=== PATIENT | male | born 1955 | race Caucasian/White ===

== ENCOUNTER 2017-06-01 15:54 | Inpatient (IN) | payer MEDICARE ==
[~2017-06-01] VITALS: Ht 165.1 cm; Wt 57.8 kg
[~2017-06-01 15:54] MED LIST: AMBIEN10 MG PO; ATROVENT 0.02%2.5 ML UPD; BUMINATE50 ML IV; DAKIN'S 0.25%480 ML TOPICAL; FEOSOL LIQ300 MG/5 M PO; FERROUS SULFAT325 MG PO; FLAGYL500 MG PEG; FOLIC ACID1 MG PO; INSPIRATION ELI1 PK1 INH; KLONOPIN1 MG PO; LACTINEX GRANUL1 PCK PO; NASACORT AQ16.5 GM NASAL; NICODERM C1 PATCH .2 TRANSDERM; PERCOCET 10/3251 TA1 PO; PERCOCET 5-3251 TAB PO; PERFOROMIS20 MCG/21 INH; PERIDEX480 ML MM; PLAVIX75 MG PO; PREDNISONE20 MG PO; PREDNISONE5 MG PO; PROTONIX40 MG PEG; PROVENTIL/2.5 MG/3 M INH; PULMICORT0.25 MG/1 INH; REQUIP XL6 MG PO; REQUIP1 MG PO; RESTORIL15 MG PO; RIFADIN300 MG PEG; ROXICODONE15 MG PO; SOMA350 MG PO; ST JOSEPH ASPIR81 MG PO; VANCOMYCIN 1 GM/1 G1 IV; VENTOLIN HFA18 GM INH; VITAMIN B-150 MG PEG; XOPENEX 0.0.63 MG/3 UPD; ZANAFLEX4 MG PO; ZANTAC150 MG PO; [UNRECOGNIZED DRUG - OTHER] IV
[2017-06-01 16:44] VITALS: BP 144/105; BMI 19.1
[2017-06-01 17:06] LABS: BASOPHILS 0.1 % (0-2); EOSINOPHILS 0 % (0-7); HEMOGLOBIN 18.2 g/dL (13.5-17.5); IMMATURE GRANULOCYTES 0.3 % (0-5); LYMPHOCYTES 10.2 % (15-50); MCH 34.1 pg (26.0-34.0); MCHC 34.3 g/dL (31.0-37.0); MCV 99.4 fL (80.0-100.0); MONOCYTES 9.5 % (2-11); NEUTROPHILS 79.9 % (40-80); PLATELET COUNT 261 10x3/uL (130-400); RBC 5.33 10x6/uL (4.20-6.10); RDW 13.7 % (11.5-14.5); WBC 14.7 10x3/uL (4.8-10.8)
--- NOTE | 2017-06-01 17:29 | NUR ---
PT ADMITTED TO FLOOR. ASSESSMENT COMPLETE. NO ACUTE DISTRESS AT THIS TIME. BED IN LOWEST POSITION, SIDE RAILS UP X 2, CALL LIGHT WITHIN REACH. FAMILY AT BEDSIDE.
[2017-06-01 19:08] LABS: ALBUMIN 3.8 g/dL (3.4-5.0); ALKALINE PHOSPHATASE 111 U/L (46-116); ALT (SGPT) 13 U/L (10-68); AMYLASE - SERUM 75 U/L (25-115); BILIRUBIN - TOTAL 0.34 mg/dL (0.2-1.3); CALC OSMOLALITY 282 mosm/kg (275-300); CARBON DIOXIDE 26.1 mmol/L (21.0-32.0); CHLORIDE - SERUM 100 mmol/L (98-107); CREATINE KINASE 51 UL (21-232); CREATININE - SERUM 4.1 mg/dL (0.6-1.3); GLUCOSE 114 mg/dL (74-106); LIPASE 66 U/L (73-393); POTASSIUM - SERUM 3.7 mmol/L (3.5-5.1); PROTEIN - SERUM 7.8 g/dL (6.4-8.2); SODIUM 140 mmol/L (136-145); UREA NITROGEN 21 mg/dL (7-18); eGFR NON AFRICAN AMERICAN 16 mL/min (90-120)
[2017-06-01 19:09] LABS: TROPONIN-I < 0.017 ng/mL (0.000-0.060)
[2017-06-01 19:11] LABS: THYROID STIMULATING HORMONE 1.52 uIU/mL (0.36-3.74)
[2017-06-01 20:00] VITALS: BP 110/80
--- NOTE | 2017-06-01 23:03 | NUR ---
1944)REC'D. IN BED VISITOR AT BEDSIDE.DENIES NAUSEA AT PRESENT TIME.REQUESTING TO KEEP INHALER AT BEDSIDE INSTRUCTED WILL HAVE TO TALK WITH HOSPITAL POLICY DOES NOT ALLOW US TO LEAVE MEDS AT BEDSIDE VOICES UNDERSTANDING
[2017-06-02] VITALS (7 sets, daily range): BP systolic 108–136; BP diastolic 74–83; Ht 165.1 cm; Wt 57.8 kg
--- NOTE | 2017-06-02 04:19 | NUR ---
RN NOTE: PT RESTING QUILETY IN SUPINE POSITION WITH UNLABORED BREATHING. IV IN RIGHT FA PATENT WITH NS INFUSING AT 100 ML HR. SCD'S IN USE ON BLE. WILL CONTINUE TO MONITOR COLOSELY FOR NEEDS.
[2017-06-02 06:01] LABS: BASOPHILS 0.1 % (0-2); EOSINOPHILS 0.5 % (0-7); HEMOGLOBIN 15.6 g/dL (13.5-17.5); IMMATURE GRANULOCYTES 0.3 % (0-5); LYMPHOCYTES 18.8 % (15-50); MCH 34.4 pg (26.0-34.0); MCHC 34.7 g/dL (31.0-37.0); MCV 99.3 fL (80.0-100.0); MEAN PLATELET VOLUME 11.2 fL (7.4-10.4); MONOCYTES 9.6 % (2-11); NEUTROPHILS 70.7 % (40-80); PLATELET COUNT 215 10x3/uL (130-400); RBC 4.53 10x6/uL (4.20-6.10); RDW 13.5 % (11.5-14.5); WBC 11.6 10x3/uL (4.8-10.8)
[2017-06-02 06:13] LABS: ALBUMIN 3.2 g/dL (3.4-5.0); ANION GAP 14.3 mmol/L (8-16); BILIRUBIN - TOTAL 0.33 mg/dL (0.2-1.3); CALCIUM 8.2 mg/dL (8.5-10.1); CARBON DIOXIDE 25.6 mmol/L (21.0-32.0); CREATININE - SERUM 3.8 mg/dL (0.6-1.3); POTASSIUM - SERUM 3.9 mmol/L (3.5-5.1); PROTEIN - SERUM 6.9 g/dL (6.4-8.2)
--- NOTE | 2017-06-02 07:00 | NUR ---
REPORT RECIEVED ASSUMED CARE. PATIENT IN BED WITH IV INTACT. NO COMPLAINTS AT THIS TIME. CALL LIGHT WITHIN REACH.
--- NOTE | 2017-06-02 08:45 | NUR ---
ASSESSMENT COMPLETE, VS STABLE. NO COMPLAINTS AT THIS TIME. CALL LIGHT WITHIN REACH.
--- NOTE | 2017-06-02 14:30 | NUR ---
PATIENT IV RESTARTED IN RIGHT LOWER EXT. X 1 STICK PER PATIENT REQUEST. RIGHT AC IV LEFT IN PLACE. NO COMPLAINTS AT THIS TIME. FAMILY AT BEDSIDE. CALL LIGHT WITHIN REACH.
--- NOTE | 2017-06-02 16:35 | NUR ---
Patient Name: ERICH TOUSSAINT Admission Status: Urgent Accout number: [id number] Admission Date: 06-01-2017 : 1955 Admission Diagnosis:NAUSEA WITH VOMITING, UNSPECIFIED Attending: CLARK Current LOS: 1 Anticipated DC Date: 06-05-2017 Planned Disposition: Home Primary Insurance: MEDICARE A & B Discharge Planning Comments: CM MET WITH PATIENT REGARDING D/C NEEDS AND PLANS. PATIENT STATED HE LIVES WITH HIS FATHER IN LAW (DAVID) AND SISTER IN LAW (JEWELS) AND ONE OF THEM WILL DRIVE HIM HOME AT DISCHARGE. PATIENT STATED THERE ARE 3 STEPS TO ENTER HOME AND NO STAIRS ONCE INSIDE. PATIENT IS INDEPENDENT WITH HIS CARE AND HAS A WALKER, WHEELCHAIR, SHOWER CHAIR, BS COMMODE, AND OXYGEN PRN AT HOME. PATIENT DOES NOT KNOW WHO SUPPLIES O2. PATIENTS PCP IS DR. CEBALLOS AND PHARMACY IS [facility] IN [place]. PATIENT DOES NOT WANT HOME HEALTH. CM WILL CONTINUE TO FOLLOW PATIENT WITH D/C NEEDS AND PLANS. PCP DR. CEBALLOS [facility] [phone] JEWELS (SISTER IN LAW) [phone] Sample Preparation Supervisor: Luz Do Is the patient Alert and Oriented? Yes 0 * How many steps to enter\exit or inside your home? 3 0 * PCP DR. CEBALLOS 0 * Pharmacy [facility] 0 * Preadmission Environment Home with Family 0 * ADLs Independent 0 * Equipment Bedside Commode Oxygen Shower Chair Walker Wheelchair 0 * List name and contact numbers for known caregivers / representatives who currently or will assist patient after discharge: JEWELS CALVILLO (SISTER IN LAW) [phone] 0 * Community resources currently utilized None 0 * Additional services required to return to the preadmission environment? Yes 0 * Can the patient safely return to the preadmission environment? Yes 0 * Has this patient been hospitalized within the prior 30 days at any hospital? No 0 Grand Total: 0
[2017-06-02 16:39] LABS: APPEARANCE CLEAR (CLEAR); BILIRUBIN NEGATIVE (NEGATIVE); COLOR YELLOW (YELLOW); GLUCOSE NEGATIVE (NEGATIVE); KETONE NEGATIVE (NEGATIVE); LEUKOCYTE ESTERASE TRACE (NEGATIVE); NITRITE POSITIVE (NEGATIVE); PROTEIN TRACE mg/dL (NEGATIVE); SPECIFIC GRAVITY 1.025 (1.005-1.020); UROBILINOGEN NORMAL (NORMAL)
[2017-06-02 16:40] LABS: BACTERIA FEW /hpf (NONE SEEN); RED CELLS - URINE OCC /hpf (0-5); WHITE CELLS - URINE 0-5 /hpf (0-5)
--- NOTE | 2017-06-02 19:30 | NUR ---
NGT INSERTED AT THIS TIME. PATIENT TOLERATED WITH SMALL AMOUNT OF PAIN. AUSCULTATED PLACEMENT OF TUBE X 2 RNS AT THIS TIME. CONNECTED TO LIWS ORDERED. CALL LIGHT WITHIN REACH.
[2017-06-03 03:58] VITALS: BP 125/71
--- NOTE | 2017-06-03 07:00 | NUR ---
PT REC'D FROM [facility]. RESTING IN BED WATCHING TV. AAOX4. RATING CURRENT PAIN IN ABD 07/25. NGT TO R NARE PULLING DARK COFFEE GROUND FLUID TO COLLECTION CANISTER TO LIS. PIV TO R FOREARM AND R AC FREE OF REDNESS AND SWELLING. IVF INFUSING TO R FOREARM. REGULAR HEART RATE AND RHTYHM. BILAT WHEEZES NOTED TO LOWER LOBES. BOWEL SOUNDS HYPOACTIVE X4 QUADS. +2 PEDAL PULSES BILAT. BED LOW, CALL LIGHT IN REACH, DENIES NEEDS. CPOC.
[2017-06-03 07:59] LABS: BASOPHILS 0.2 % (0-2); EOSINOPHILS 0.9 % (0-7); IMMATURE GRANULOCYTES 0.2 % (0-5); LYMPHOCYTES 12.8 % (15-50); MCH 33.5 pg (26.0-34.0); MCHC 34.4 g/dL (31.0-37.0); MCV 97.5 fL (80.0-100.0); MEAN PLATELET VOLUME 11.2 fL (7.4-10.4); MONOCYTES 10.2 % (2-11); NEUTROPHILS 75.7 % (40-80); PLATELET COUNT 186 10x3/uL (130-400); RDW 13.5 % (11.5-14.5)
[2017-06-03 08:05] LABS: HEMATOCRIT 35.2 % (42.0-54.0); HEMOGLOBIN 12.1 g/dL (13.5-17.5); RBC 3.61 10x6/uL (4.20-6.10); WBC 6.5 10x3/uL (4.8-10.8)
[2017-06-03 08:27] LABS: ALBUMIN 2.6 g/dL (3.4-5.0); BILIRUBIN - TOTAL 0.4 mg/dL (0.2-1.3); CALCIUM 7.5 mg/dL (8.5-10.1); CARBON DIOXIDE 25.5 mmol/L (21.0-32.0); PROTEIN - SERUM 5.3 g/dL (6.4-8.2)
[2017-06-03 08:37] LABS: CREATININE - SERUM 1.2 mg/dL (0.6-1.3)
[2017-06-03 08:39] LABS: POTASSIUM - SERUM 2.5 mmol/L (3.5-5.1)
[2017-06-03 09:02] VITALS: BP 149/76
[2017-06-03 12:44] VITALS: BP 138/75
--- NOTE | 2017-06-03 13:14 | NUR ---
ATTEMPTED TO FLUSH PIV TO R AC. IV SITE BEGAN TO INFLITRATE. PIV RESITED TO R FA WITH 20GUAGE IV CATHETER FOR K REPLACEMENT. X1 ATTEMPT. FAMILY AT BEDSIDE. RECONNECTED TO IVF. BED LOW, CALL LIGHT IN REACH, DENIES NEEDS. CPOC.
[2017-06-03 15:36] VITALS: BP 139/80
[2017-06-03 19:00] VITALS: BP 111/72
[2017-06-04] VITALS: BP 118/72
[2017-06-04 04:00] VITALS: BP 138/82
[2017-06-04 04:53] LABS: BASOPHILS 0.1 % (0-2); EOSINOPHILS 2.5 % (0-7); HEMATOCRIT 36.4 % (42.0-54.0); HEMOGLOBIN 12.4 g/dL (13.5-17.5); IMMATURE GRANULOCYTES 0.3 % (0-5); LYMPHOCYTES 14.9 % (15-50); MCH 34.1 pg (26.0-34.0); MCHC 34.1 g/dL (31.0-37.0); MEAN PLATELET VOLUME 10.7 fL (7.4-10.4); NEUTROPHILS 71.2 % (40-80); PLATELET COUNT 177 10x3/uL (130-400); RBC 3.64 10x6/uL (4.20-6.10); RDW 13.5 % (11.5-14.5); WBC 6.9 10x3/uL (4.8-10.8)
[2017-06-04 05:23] LABS: INR 1.2 (0.85-1.17); PROTIME 15.1 SECONDS (11.6-15.0)
[2017-06-04 05:30] LABS: APPEARANCE CLEAR (CLEAR); BILIRUBIN NEGATIVE (NEGATIVE); COLOR YELLOW (YELLOW); GLUCOSE 250 mg/dL (NEGATIVE); KETONE NEGATIVE (NEGATIVE); LEUKOCYTE ESTERASE NEGATIVE (NEGATIVE); NITRITE NEGATIVE (NEGATIVE); PROTEIN NEGATIVE (NEGATIVE); UROBILINOGEN NORMAL (NORMAL)
[2017-06-04 05:31] LABS: ALBUMIN 2.7 g/dL (3.4-5.0); ALKALINE PHOSPHATASE 67 U/L (46-116); ALT (SGPT) 9 U/L (10-68); BILIRUBIN - TOTAL 0.62 mg/dL (0.2-1.3); CALCIUM 7.9 mg/dL (8.5-10.1); CARBON DIOXIDE 28.7 mmol/L (21.0-32.0); CHLORIDE - SERUM 110 mmol/L (98-107); CREATININE - SERUM 0.9 mg/dL (0.6-1.3); GLUCOSE 95 mg/dL (74-106); MAGNESIUM - SERUM 2.1 mg/dL (1.8-2.4); PROTEIN - SERUM 5.9 g/dL (6.4-8.2); SODIUM 144 mmol/L (136-145); eGFR NON AFRICAN AMERICAN 90 mL/min (90-120)
[2017-06-04 05:32] LABS: CALC OSMOLALITY 285 mosm/kg (275-300); POTASSIUM - SERUM 3.5 mmol/L (3.5-5.1); UREA NITROGEN 9 mg/dL (7-18)
--- NOTE | 2017-06-04 07:55 | NUR ---
PATIENT LOW SMITH POSITION. RESPIRATIONS EVEN AND UNLABORED. SIDE RAILS UP X2. BED IN LOW POSITION. CALL LIGHT IN REACH. NO NEEDS VOICED.
[2017-06-04 09:41] VITALS: BP 170/77
[2017-06-04 12:33] VITALS: BP 149/94
[2017-06-04 17:38] VITALS: BP 159/91
[2017-06-04 20:00] VITALS: BP 151/83
--- NOTE | 2017-06-04 22:00 | NUR ---
PT ALERT & ORIENTED. NG TUBE CLAMPED. BOWEL SOUNDS HYPERACTIVE X4 NOW. PT TOLERATING CLEAR LIQUIDS. COMPLETE ASSESSMENT PER FLOW-SHEET. WILL CONTINUE TO MONITOR.
[2017-06-05] VITALS: BP 136/81
[2017-06-05 04:00] VITALS: BP 152/82
[2017-06-05 06:47] LABS: BASOPHILS 0.3 % (0-2); HEMATOCRIT 34.4 % (42.0-54.0); HEMOGLOBIN 11.7 g/dL (13.5-17.5); IMMATURE GRANULOCYTES 0.1 % (0-5); LYMPHOCYTES 17.2 % (15-50); MCH 34.1 pg (26.0-34.0); MCV 100.3 fL (80.0-100.0); MEAN PLATELET VOLUME 11.4 fL (7.4-10.4); MONOCYTES 9.8 % (2-11); NEUTROPHILS 68.6 % (40-80); PLATELET COUNT 179 10x3/uL (130-400); RBC 3.43 10x6/uL (4.20-6.10); RDW 13.7 % (11.5-14.5); WBC 7.8 10x3/uL (4.8-10.8)
[2017-06-05 07:00] LABS: ALBUMIN 2.4 g/dL (3.4-5.0); ALKALINE PHOSPHATASE 57 U/L (46-116); ALT (SGPT) 8 U/L (10-68); BILIRUBIN - TOTAL 0.41 mg/dL (0.2-1.3); CALC OSMOLALITY 275 mosm/kg (275-300); CALCIUM 7.6 mg/dL (8.5-10.1); CARBON DIOXIDE 26.6 mmol/L (21.0-32.0); CHLORIDE - SERUM 107 mmol/L (98-107); CREATININE - SERUM 0.8 mg/dL (0.6-1.3); GLUCOSE 104 mg/dL (74-106); POTASSIUM - SERUM 3.3 mmol/L (3.5-5.1); PROTEIN - SERUM 5.4 g/dL (6.4-8.2); SODIUM 140 mmol/L (136-145); eGFR NON AFRICAN AMERICAN > 90 mL/min (90-120)
[2017-06-05 07:01] LABS: UREA NITROGEN 4 mg/dL (7-18)
--- NOTE | 2017-06-05 07:45 | NUR ---
PT ASSESSMENT COMPLETE SEE FLOW SHEET NO ACUTE DISTRESS NOTED VOICES ALL NEEDS TO STAFF ALL ADLS PER STAFF ASSIST. NGT CLAMPED AT THIS TIME. WILL TREAT PAIN PER ORDER.
[2017-06-05 09:32] VITALS: BP 136/73
[2017-06-05 11:58] VITALS: BP 143/72
[2017-06-05 17:16] VITALS: BP 145/76
[2017-06-05 19:00] VITALS: BP 154/45
--- NOTE | 2017-06-05 21:07 | NUR ---
2000)DR. OSMAN HERE NG TUBE DC'D ORDERED.INSTRUCTED ON FULL LIQUID DIET VOICES UNDERSTANDING
[2017-06-06] VITALS: BP 122/82
--- NOTE | 2017-06-06 02:00 | NUR ---
PT RESTING IN BED WITH NO DISTRESS. RESPIRATIONS ARE EVEN AND UNLABORED. SIDE RAILS UP X 2. BED IS LOW. CALL LIGHT IN REACH.
--- NOTE | 2017-06-06 02:00 | NUR ---
PT RESTING IN BED WITH NO DISTRESS. RESPIRATIONS EVEN AND UNLABORED. VISITOR AT THE BEDSIDE. SIDE RAILS UP X 2. BED IS LOW. CALL LIGHT IN REACH.
[2017-06-06 04:00] VITALS: BP 133/92
[2017-06-06 06:47] LABS: BASOPHILS 0.1 % (0-2); EOSINOPHILS 3.9 % (0-7); HEMATOCRIT 36.2 % (42.0-54.0); HEMOGLOBIN 12.4 g/dL (13.5-17.5); IMMATURE GRANULOCYTES 0.1 % (0-5); LYMPHOCYTES 20.1 % (15-50); MCH 33.8 pg (26.0-34.0); MCHC 34.3 g/dL (31.0-37.0); MCV 98.6 fL (80.0-100.0); MEAN PLATELET VOLUME 10.9 fL (7.4-10.4); NEUTROPHILS 66.8 % (40-80); PLATELET COUNT 185 10x3/uL (130-400); RBC 3.67 10x6/uL (4.20-6.10); RDW 13.5 % (11.5-14.5); WBC 7.1 10x3/uL (4.8-10.8)
[2017-06-06 07:11] LABS: ALBUMIN 2.5 g/dL (3.4-5.0); ALKALINE PHOSPHATASE 55 U/L (46-116); ALT (SGPT) 9 U/L (10-68); AMYLASE - SERUM 49 U/L (25-115); BILIRUBIN - TOTAL 0.35 mg/dL (0.2-1.3); CALC OSMOLALITY 273 mosm/kg (275-300); CALCIUM 7.9 mg/dL (8.5-10.1); CARBON DIOXIDE 24.6 mmol/L (21.0-32.0); CHLORIDE - SERUM 106 mmol/L (98-107); CREATININE - SERUM 0.7 mg/dL (0.6-1.3); GLUCOSE 101 mg/dL (74-106); LIPASE 68 U/L (73-393); POTASSIUM - SERUM 3.4 mmol/L (3.5-5.1); PROTEIN - SERUM 5.6 g/dL (6.4-8.2); SODIUM 139 mmol/L (136-145); THYROID STIMULATING HORMONE 1.15 uIU/mL (0.36-3.74); UREA NITROGEN 1 mg/dL (7-18); eGFR NON AFRICAN AMERICAN > 90 mL/min (90-120)
--- NOTE | 2017-06-06 07:55 | NUR ---
PT AOX4 RESP EVEN AND NONLABORED PT DENIES NEEDS AT THIS TIME IV TO LEFT FOREARM PATENT AND INTACT AT THIS TIME SRX2 BED AT LOWEST SETTING CALL LIGHT WITHIN REACH WILL CONTINUE TO MONITOR
[2017-06-06 09:03] VITALS: BP 159/86
[2017-06-06 12:05] VITALS: BP 127/88
--- NOTE | 2017-06-06 15:08 | NUR ---
NUTRITION MONITORING & EVAL CHART REVIEWED, PT VISIT. TOLERATING FULL LIQUID DIET. ADDED ENSURE TO MEALS. RD FOLLOWING
[2017-06-06 17:44] VITALS: BP 144/80
[2017-06-06 23:59] VITALS: BP 158/89
--- NOTE | 2017-06-07 01:44 | NUR ---
2030) PT. REQUESTING MORPHINE INFORMED MS HAS BEEN DISCONTINUED.BECAME VERY ANGRY.STATES YOU'RE JUST HOLDING MY MEDS FROM ME THE WOULDN'T DO THAT.DISCUSSED WITH XIOMARA GARCIA WHO TALKED WITH PATIENT REGARDING MORPHINE BEING DISCONTINUED.NOW VOICES UNDERSTANDING.WILL CONTINUE TO MONITOR FOR ANY CHGES. AND FOLLOW CURRENT PLAN OF CARE
--- NOTE | 2017-06-07 01:56 | NUR ---
0130)PAIN MED OFFERED REFUSED STATES I DON'T NEED IT
--- NOTE | 2017-06-07 02:00 | NUR ---
PT IN BED WITH NO DISTRESS. RESPIRATIONS EVEN AND UNLABORED. SIDE RAILS X 2. BED IS LOW. CALL LIGHT IN REACH.
[2017-06-07 04:00] VITALS: BP 119/51
--- NOTE | 2017-06-07 07:58 | NUR ---
PT AOX4 RESP EVEN AND NONLABORED IV TO RIGHT HAND PATENT INTACT AT THIS TIME SRX2 BED AT LOWEST SETTING CALL LIGHT WITHIN REACH WILL CONTINUE TO MONITOR
[2017-06-07 09:33] VITALS: BP 132/94
[2017-06-07 11:29] LABS: BASOPHILS 0.5 % (0-2); EOSINOPHILS 2.2 % (0-7); HEMATOCRIT 37.4 % (42.0-54.0); HEMOGLOBIN 12.6 g/dL (13.5-17.5); IMMATURE GRANULOCYTES 0.2 % (0-5); LYMPHOCYTES 24.3 % (15-50); MCH 33.7 pg (26.0-34.0); MCHC 33.7 g/dL (31.0-37.0); MEAN PLATELET VOLUME 10.8 fL (7.4-10.4); MONOCYTES 8.4 % (2-11); NEUTROPHILS 64.4 % (40-80); RBC 3.74 10x6/uL (4.20-6.10); RDW 13.6 % (11.5-14.5); WBC 5.9 10x3/uL (4.8-10.8)
[2017-06-07 11:41] LABS: PLATELET COUNT 223 10x3/uL (130-400)
[2017-06-07 11:59] LABS: ALBUMIN 2.6 g/dL (3.4-5.0); ALKALINE PHOSPHATASE 54 U/L (46-116); ALT (SGPT) 8 U/L (10-68); BILIRUBIN - TOTAL 0.24 mg/dL (0.2-1.3); CALC OSMOLALITY 275 mosm/kg (275-300); CALCIUM 8.2 mg/dL (8.5-10.1); CARBON DIOXIDE 27.1 mmol/L (21.0-32.0); CHLORIDE - SERUM 106 mmol/L (98-107); CREATININE - SERUM 0.7 mg/dL (0.6-1.3); GLUCOSE 108 mg/dL (74-106); POTASSIUM - SERUM 3.8 mmol/L (3.5-5.1); PROTEIN - SERUM 5.6 g/dL (6.4-8.2); SODIUM 140 mmol/L (136-145); eGFR NON AFRICAN AMERICAN > 90 mL/min (90-120)
[2017-06-07 12:03] LABS: UREA NITROGEN 2 mg/dL (7-18)
[2017-06-07 13:40] VITALS: BP 143/103
[2017-06-07 17:15] VITALS: BP 130/71
[2017-06-07 19:00] VITALS: BP 152/75
--- NOTE | 2017-06-07 22:40 | NUR ---
2000)REC'D.IN BED EXPLAINED RUBIN PREP. VOICES UNDERSTANDING.NPO AT VT.PREP STARTED.MARYANNE SAGE CONTINUE TO MONITOR FOR ANY CHGES AND FOLLOW CURRENT PLAN OF CARE.
[2017-06-08 04:00] VITALS: BP 153/90
[2017-06-08 06:04] LABS: BASOPHILS 0.8 % (0-2); EOSINOPHILS 3.8 % (0-7); HEMATOCRIT 36.2 % (42.0-54.0); HEMOGLOBIN 12.1 g/dL (13.5-17.5); IMMATURE GRANULOCYTES 0.4 % (0-5); LYMPHOCYTES 39.5 % (15-50); MCH 33.2 pg (26.0-34.0); MCHC 33.4 g/dL (31.0-37.0); MCV 99.5 fL (80.0-100.0); MEAN PLATELET VOLUME 10.9 fL (7.4-10.4); MONOCYTES 10.4 % (2-11); NEUTROPHILS 45.1 % (40-80); PLATELET COUNT 228 10x3/uL (130-400); RBC 3.64 10x6/uL (4.20-6.10); RDW 13.7 % (11.5-14.5); WBC 5.3 10x3/uL (4.8-10.8)
[2017-06-08 06:39] LABS: ALBUMIN 2.6 g/dL (3.4-5.0); ALKALINE PHOSPHATASE 50 U/L (46-116); ALT (SGPT) 10 U/L (10-68); CALC OSMOLALITY 273 mosm/kg (275-300); CARBON DIOXIDE 27.4 mmol/L (21.0-32.0); CHLORIDE - SERUM 106 mmol/L (98-107); CREATININE - SERUM 0.7 mg/dL (0.6-1.3); GLUCOSE 84 mg/dL (74-106); POTASSIUM - SERUM 3.6 mmol/L (3.5-5.1); PROTEIN - SERUM 5.6 g/dL (6.4-8.2); SODIUM 140 mmol/L (136-145); UREA NITROGEN 2 mg/dL (7-18); eGFR NON AFRICAN AMERICAN > 90 mL/min (90-120)
--- NOTE | 2017-06-08 08:15 | NUR ---
PATIENT ALERT IN MID SMITH POSITION. RESPIRATIONS EVEN AND UNLABORED. SIDE RAILS UP X2. BED IN LOW POSITION. CALL LIGHT IN REACH.
[2017-06-08 09:49] VITALS: BP 152/86
--- NOTE | 2017-06-08 10:01 | NUR ---
RETURNED TO FLOOR FROM EGD AND COLONOSCOPY, DENIES NEEDS, BED LOWEST POSITION, CALL LIGHT IN REACH, WILL CONTINUE TO MONITOR
[2017-06-08 14:21] VITALS: BP 150/80
[2017-06-08 17:01] VITALS: BP 133/79
--- NOTE | 2017-06-08 19:00 | NUR ---
REPORT RECEIVED AND CARE OF PT ASSUMED. PT LYING IN SEMI SMITH'S POSITION WATCHING TV. IV IN RIGHT FA WITH NS AT KVO. TELEMETRY IN USE. WILL MONITOR FOR NEEDS.
[2017-06-08 20:00] VITALS: BP 131/77
--- NOTE | 2017-06-08 21:39 | NUR ---
HS MEDICATIONS GIVEN TO INCLUDE PERCOCET PER PRN ORDER. WILL CONTINUE TO MONITOR FOR NEEDS.
[2017-06-09] VITALS: BP 110/70
[2017-06-09 04:00] VITALS: BP 133/78
[2017-06-09 07:00] LABS: HEMATOCRIT 32.1 % (42.0-54.0); HEMOGLOBIN 11.2 g/dL (13.5-17.5); LYMPHOCYTES 29.4 % (15-50); MCH 34.6 pg (26.0-34.0); MCHC 34.9 g/dL (31.0-37.0); MCV 99.1 fL (80.0-100.0); MEAN PLATELET VOLUME 10.4 fL (7.4-10.4); NEUTROPHILS 57.5 % (40-80); PLATELET COUNT 209 10x3/uL (130-400); RBC 3.24 10x6/uL (4.20-6.10); RDW 13.8 % (11.5-14.5); WBC 6.4 10x3/uL (4.8-10.8)
[2017-06-09 07:16] LABS: ALBUMIN 2.2 g/dL (3.4-5.0); ALKALINE PHOSPHATASE 49 U/L (46-116); ALT (SGPT) 9 U/L (10-68); CALCIUM 7.8 mg/dL (8.5-10.1); CHLORIDE - SERUM 107 mmol/L (98-107); GLUCOSE 109 mg/dL (74-106); PROTEIN - SERUM 4.9 g/dL (6.4-8.2); SODIUM 140 mmol/L (136-145)
[2017-06-09 07:20] LABS: CALC OSMOLALITY 276 mosm/kg (275-300); CREATININE - SERUM 0.9 mg/dL (0.6-1.3); UREA NITROGEN 5 mg/dL (7-18); eGFR NON AFRICAN AMERICAN 90 mL/min (90-120)
--- NOTE | 2017-06-09 07:58 | NUR ---
PT AOX4 RESP EVEN AND NONLABORED PT DENIES NEEDS AT THIS TIME IV TO RIGHT FOREARM PATNE AND INTACT AT THIS TIME SRX2 BED AT LOWEST SETTING CALL LIGHT WITHIN REACH WILL CONTINUE TO MONITOR
[2017-06-09 08:32] VITALS: BP 125/72
[2017-06-09] MEDS ORDERED: ASPIRIN81 MG PO (12:57)
[2017-06-09] MEDS ORDERED: PROTONIX40 MG PO (12:59)
[2017-06-09] MEDS ORDERED: FLORAJEN3 CAPS460 MG PO (12:59)
[2017-06-09] MEDS ORDERED: FLAGYL500 MG PO (13:02)
[2017-06-09] MEDS ORDERED: LEVAQUIN500 MG PO (13:02)
--- NOTE | 2017-06-09 13:19 | NUR ---
CM REASSESSMENT NOTE: PATIENT IS DISCHARGING HOME TODAY WITH HOME HEALTH. SIGNED THE DOROTHY FORM FOR [facility] [facility]. FAMILY DRIVING HIM HOME.
[2017-06-09 14:13] VITALS: BP 91/65
--- NOTE | 2017-06-09 15:47 | NUR ---
IV'S X2 DISCONTINUED WITH CATHETERS INTACT AT THIS TIME DISCHARGE INSTRUCTIONS AND ONE PAPER PRESCRIPTION GIVEN TO PT AT THIS TIME PT TAKEN VIA WHEELCHAIR VIA PRIVATE VEHICLE AT THIS TIME
[2017-06-12 20:08] LABS: AEROBE ID Preliminary report (())
== END 2017-06-09 15:53 | disposition home health service (06) | DRG 389 ==
LOC: D.MS 15:54
PROVIDERS: Emergency Medicine; Family Medicine; Internal Medicine; Internal Medicine Gastroenterology; ADMIT Family Medicine
PROC: 0D9670Z Drainage of Stomach with Drainage Device, Via Natural or Artificial Opening (ICD-10-PCS; principal; 2017-06-03)
PROC: 0DB68ZX Excision of Stomach, Via Natural or Artificial Opening Endoscopic, Diagnostic (ICD-10-PCS; 2017-06-08)
PROC: 0DBK8ZZ Excision of Ascending Colon, Via Natural or Artificial Opening Endoscopic (ICD-10-PCS; 2017-06-08)
PROC: 0DBM8ZZ Excision of Descending Colon, Via Natural or Artificial Opening Endoscopic (ICD-10-PCS; 2017-06-08)
PROC: 0DBL8ZZ Excision of Transverse Colon, Via Natural or Artificial Opening Endoscopic (ICD-10-PCS; 2017-06-08)
DX: K56.7 Ileus, unspecified (principal); N17.9 Acute kidney failure, unspecified; D62 Acute posthemorrhagic anemia; L97.829 Non-pressure chronic ulcer of other part of left lower leg with unspecified severity; L97.819 Non-pressure chronic ulcer of other part of right lower leg with unspecified severity; I70.92 Chronic total occlusion of artery of the extremities; E46 Unspecified protein-calorie malnutrition; K22.10 Ulcer of esophagus without bleeding; E86.0 Dehydration; E87.6 Hypokalemia; I27.2 Other secondary pulmonary hypertension; J44.9 Chronic obstructive pulmonary disease, unspecified; I70.248 Atherosclerosis of native arteries of left leg with ulceration of other part of lower leg; I70.238 Atherosclerosis of native arteries of right leg with ulceration of other part of lower leg; K75.9 Inflammatory liver disease, unspecified; F17.200 Nicotine dependence, unspecified, uncomplicated; K29.70 Gastritis, unspecified, without bleeding; K29.80 Duodenitis without bleeding; D12.2 Benign neoplasm of ascending colon; D12.4 Benign neoplasm of descending colon; D12.3 Benign neoplasm of transverse colon

== ENCOUNTER 2019-04-28 11:38 | Inpatient (IN) | payer MEDICARE ==
[~2019-04-28] VITALS: Ht 165.1 cm; Wt 59.0 kg
[~2019-04-28 11:38] MED LIST changes: +ASPIRIN81 MG PO; +FLAGYL500 MG PO; +FLORAJEN3 CAPS460 MG PO; +LEVAQUIN500 MG PO; +PROTONIX40 MG PO
[2019-04-28 12:57] LABS: BASOPHILS 0.5 % (0-2); EOSINOPHILS 1.2 % (0-7); HEMATOCRIT 45.9 % (42.0-54.0); IMMATURE GRANULOCYTES 0.1 % (0-5); LYMPHOCYTES 25.8 % (15-50); MCHC 34.9 g/dL (31.0-37.0); MCV 91.8 fL (80.0-100.0); MEAN PLATELET VOLUME 10.1 fL (7.4-10.4); MONOCYTES 11.7 % (2-11); NEUTROPHILS 60.7 % (40-80); RDW 14.2 % (11.5-14.5); WBC 8.3 10x3/uL (4.8-10.8)
[2019-04-28 13:01] LABS: PLATELET COUNT 269 10x3/uL (130-400)
[2019-04-28 13:04] LABS: INR 0.93 (0.85-1.17)
[2019-04-28 13:07] LABS: D-DIMER-QUANTITATIVE 1.18 ug/mLFEU (0.20-0.54)
--- NOTE | 2019-04-28 13:15 | NUR ---
PT CLEANED WITH BATH WIPES. NEW PULL-UP PLACED. SHEETS CHANGED AND PADS PLACED UNDER THE PT.
[2019-04-28 15:00] VITALS: BP 141/87
[2019-04-28 15:13] LABS: APPEARANCE CLEAR (CLEAR); BILIRUBIN NEGATIVE (NEGATIVE); COLOR STRAW (YELLOW); GLUCOSE NEGATIVE (NEGATIVE); KETONE NEGATIVE (NEGATIVE); NITRITE NEGATIVE (NEGATIVE); PROTEIN NEGATIVE (NEGATIVE); UROBILINOGEN NORMAL (NORMAL)
[2019-04-28 15:22] LABS: ALBUMIN 2.8 g/dL (3.4-5.0); ALKALINE PHOSPHATASE 73 U/L (46-116); ALT (SGPT) 33 U/L (10-68); BILIRUBIN - TOTAL 0.17 mg/dL (0.2-1.3); CALCIUM 7.6 mg/dL (8.5-10.1); CARBON DIOXIDE 32.3 mmol/L (21.0-32.0); CHLORIDE - SERUM 99 mmol/L (98-107); CKMB 1.8 U/L (0.0-3.6); CREATINE KINASE 45 UL (21-232); CREATININE - SERUM 0.4 mg/dL (0.6-1.3); GLUCOSE 82 mg/dL (74-106); MAGNESIUM - SERUM 1.7 mg/dL (1.8-2.4); POTASSIUM - SERUM 4.3 mmol/L (3.5-5.1); PRO BNP 203 pg/mL (0-125); PROTEIN - SERUM 6.5 g/dL (6.4-8.2); SODIUM 136 mmol/L (136-145); TROPONIN-I < 0.017 ng/mL (0.000-0.060); eGFR NON AFRICAN AMERICAN > 90 mL/min (90-120)
[2019-04-28 15:25] LABS: CALC OSMOLALITY 268 mosm/kg (275-300); UREA NITROGEN 6 mg/dL (7-18)
[2019-04-28 19:07] VITALS: BP 142/87
--- NOTE | 2019-04-28 19:30 | NUR ---
SITTING UP IN BED. ALERT AND ORIENTED X4. TALKATIVE WITH STAFF. NO DISTRESS. RESP IRREG. NONLABORED. O2 @ 3L/NC. NONPROD COUGH. BRUISES NOTED TO BUE. SKIN IS THIN, FRAGILE. PEDAL PULSES WEAK. BLE COLD TO TOUCH BUT NORMAL IN COLOR. AMB WITH ASSIST. GAIT UNSTEADY. GEN WEAKNESS. NS @ 100 ML/HR INFUSING IN RT WRIST WITHOUT DIFF. DENIES PAIN. SR ELEVATED X2. CL IN REACH. FELIX ALARM ON FOR PT SAFETY.
[2019-04-29] VITALS: BP 127/74
--- NOTE | 2019-04-29 01:36 | NUR ---
HAS BEEN AWAKE ALL NIGHT WATCHING TV AND EATING SNACKS. NO DISTRESS. CL IN REACH.
--- NOTE | 2019-04-29 06:30 | NUR ---
BATH AND LINEN CHANGE PER MACHINE ICER THIS AM. PT MARYANNE WELL. ASKING IF HE IS GOING TO BE DISCHARGED TODAY. NO DISTRESS. CL IN REACH.
--- NOTE | 2019-04-29 07:46 | NUR ---
ALERT AND ORIENTED X 3. LUNGS CLEAR BILATERALLY IN ALL CHOW[place]URY. HEART SOUNDS S1 AND S2 HEARD IN ALL CHOWDHURY. BOWEL SOUNDS ACTIVE X 4. SKIN INTACT WITHOUT REDNESS. IV TO RIGHT WRIST PATENT WITHOUT REDNESS. DENIES PAIN. DENIES NEEDS. BED LOW. CALL FRANCISCO AND PERSONAL ITEMS IN REACH. FALL PRECAUTIONS IN PLACE. WILL CONTINUE TO MONITOR.
--- NOTE | 2019-04-29 09:26 | NUR ---
NOTIFIED PHARMACY [facility] NOT AVAILABLE. STATES WILL BRING.
[2019-04-29 09:46] VITALS: BP 133/64
--- NOTE | 2019-04-29 11:31 | NUR ---
NOTIFIED PHARMACY [facility] STILL NOT AVAILABLE. MICHELLE STATES WILL BRING.
--- NOTE | 2019-04-29 11:48 | NUR ---
PATIENT IN BED WITH SHAKING NOTED TO HANDS. STATES HAPPENS WHEN DOESN'T HAVE ALCOHOL. FAMILY STATES PT WILL GO THROUGH WITHDRAWAL AND WOULD LIKE TO SEE JANUARY REYNA. JANUARY SPOKE WITH FAMILY IN ROOM.
[2019-04-29 11:57] LABS: UDS - AMPHET NEGATIVE QUAL (NEGATIVE); UDS - BARB NEGATIVE QUAL (NEGATIVE); UDS - BENZO NEGATIVE QUAL (NEGATIVE); UDS - COCAINE NEGATIVE QUAL (NEGATIVE); UDS - OPIATE NEGATIVE QUAL (NEGATIVE); UDS - PCP NEGATIVE QUAL (NEGATIVE); UDS - THC NEGATIVE QUAL (NEGATIVE)
--- NOTE | 2019-04-29 12:37 | NUR ---
RESTING IN BED. DENIES PAIN. DENIES NEEDS. WILL CONTINUE TO MONITOR.
[2019-04-29 14:23] VITALS: BP 132/67
--- NOTE | 2019-04-29 14:27 | NUR ---
IV LEAKING TO RIGHT HAND. RESITED TO RFA AFTER TWO ATTEMPTS.
[2019-04-29 14:58] VITALS: Ht 165.1 cm; Wt 59.0 kg
[2019-04-29 17:12] VITALS: BP 118/60
--- NOTE | 2019-04-29 18:48 | NUR ---
RESTING IN BED. DENIES PAIN. DENIES NEEDS. BED LOW. CALL FRANCISCO AND PERSONAL ITEMS IN REACH. WILL CONTINUE TO MONITOR.
--- NOTE | 2019-04-29 19:51 | NUR ---
PT SITTING UP IN BED WATCHING TV. NO SIGNS OF DISTRESS NOTED, DENIES ANY PAIN OR NEEDS AT THIS TIME. BED LOW, CALL LIGHT IN REACH, RAILS UP X 2. WILL CONTINUTE TO MONITOR.
[2019-04-29 22:03] VITALS: BP 126/55
[2019-04-30 01:49] VITALS: BP 121/58
[2019-04-30 05:57] LABS: BASOPHILS 0 % (0-2); EOSINOPHILS 0 % (0-7); IMMATURE GRANULOCYTES 0.4 % (0-5); LYMPHOCYTES 5.3 % (15-50); MCH 31.4 pg (26.0-34.0); MCHC 34.3 g/dL (31.0-37.0); MCV 91.6 fL (80.0-100.0); MEAN PLATELET VOLUME 9.8 fL (7.4-10.4); MONOCYTES 6.3 % (2-11); PLATELET COUNT 243 10x3/uL (130-400); RDW 14.8 % (11.5-14.5)
[2019-04-30 06:04] LABS: HEMATOCRIT 34.7 % (42.0-54.0); HEMOGLOBIN 11.9 g/dL (13.5-17.5); RBC 3.79 10x6/uL (4.20-6.10); WBC 11.4 10x3/uL (4.8-10.8)
[2019-04-30 06:10] LABS: CALCIUM 8.1 mg/dL (8.5-10.1); CARBON DIOXIDE 33.3 mmol/L (21.0-32.0); CHLORIDE - SERUM 103 mmol/L (98-107); SODIUM 139 mmol/L (136-145)
[2019-04-30 06:17] LABS: CALC OSMOLALITY 278 mosm/kg (275-300); CREATININE - SERUM 0.7 mg/dL (0.6-1.3); GLUCOSE 134 mg/dL (74-106); UREA NITROGEN 10 mg/dL (7-18); eGFR NON AFRICAN AMERICAN > 90 mL/min (90-120)
[2019-04-30 06:31] VITALS: BP 122/58
[2019-04-30 09:32] VITALS: BP 118/48
[2019-04-30] MEDS ORDERED: THERAGRAN M [BK1 TAB PO ×2 (10:50→13:39)
[2019-04-30] MEDS ORDERED: PROVENTIL/2.5 MG/3 M INH ×2 (12:30→13:41)
--- NOTE | 2019-04-30 12:31 | NUR ---
IV REMOVED FROM RIGHT FOREARM WITH NO REDNESS OR EDEMA AT SITE. DISCHARGE INSTRUCTIONS GIVEN TO PATIENT WITH UNDERSTANDING VOICED.
[2019-04-30] MEDS ORDERED: PLAVIX75 MG PO (12:58)
[2019-04-30] MEDS ORDERED: ALBUTEROL SULF8.5 GM INH (12:58)
[2019-04-30] MEDS ORDERED: XOPENEX 0.0.63 MG/3 UPD (12:58)
[2019-04-30 13:01] VITALS: BP 126/50
--- NOTE | 2019-04-30 13:13 | MORECARE ---
CASE MANAGEMENT DISCHARGE SUMMARY PATIENT: ERICH TOUSSAINT UNIT: [id number] ADM DATE: 04/28/19 AGE: 64 : 53 SEX: M ROOM/BED: D.2237 AUTHOR: JOYA GROVER PHYSICIAN: REFERRING PHYSICIAN: FRANCESCA BRUSH MD DATE OF SERVICE: 04/30/19 Discharge Plan Patient Name: ERICH TOUSSAINT [facility] [facility] 1955 Planned Disposition: Home Anticipated Discharge Date: Discharge Date: Expected LOS: Initial Reviewer: [id number] Initial Review Date: 04/30/2019 Generated: 04/30/19 2:13 pm External Providers External Provider: Daryn Next Contact Date: Service Request Date: Service Type: Resolution: Reviewer: Comments: Coverage Notice Reviewer: [email or web address] Andrew Faustin Notice Issued Date-Time: 04/30/2019 13:10 Notice Type: Patient Choice Letter Notice Delivered To: Family Member Relationship to Patient: Sister Head Of Stock Name: Aubree Goodrich Delivery Method: HAND - Hand Delivered Tangela Days: Prior Verbal Notification: Recipient Understood Notice: Yes Recipient Signature: Yes Med Rec Note Co-signed by Attending: Coverage Notice Comment: DOROTHY for [employer] Patient Name: ERICH TOUSSAINT Page [id number] at 1313 All edits/amendments must be made on the electronic document DICTATION DATE: 04/30/19 1312 FIRE POT OPERATOR: MARTHA 04/30/19 1312 RPT#: [id number] MS DATE: STATUS: ADM IN [facility] [address] [place] [address] END OF REPORT
--- NOTE | 2019-04-30 13:22 | MORECARE ---
CASE MANAGEMENT DISCHARGE SUMMARY PATIENT: ERICH TOUSSAINT UNIT: [id number] ADM DATE: 04/28/19 AGE: 64 : 53 SEX: M ROOM/BED: D.2237 AUTHOR: REILLYDOC PHYSICIAN: REFERRING PHYSICIAN: FRANCESCA BRUSH MD DATE OF SERVICE: 04/30/19 Discharge Plan Patient Name: ERICH TOUSSAINT Facility: [facility]:[place] : 1955 Planned Disposition: Home Anticipated Discharge Date: Discharge Date: Expected LOS: Initial Reviewer: [email or web address] Initial Review Date: 04/30/2019 Generated: 04/30/19 2:22 pm Comments DCP- Discharge Planning Updated by [id number]: Susan Faustin on 04/30/19 12:[address] Patient Name: ERICH TOUSSAINT Admission Status: ER Accout number: [id number] Admission Date: 04-28-2019 : 1955 Admission Diagnosis: Attending: FRANCESCA BRUSH Current LOS: 2 Anticipated DC Date: Planned Disposition: Home Primary Insurance: MEDICARE A & B Discharge Planning Comments: Received discharge orders. I met with the patient and his sister concerning discharge needs. He states he is living in his own home and a friend is staying with him. He plans on returning home and feels this is a safe discharge. His sister explains that he has been here from [place] for about a year and a half and has not taken any of his medicines since his move here. He also does not have oxygen or nebulizer here. She states he had them both when he was in [place]. DOROTHY for [facility] signed and I have asked RT to do a walk test to check for home oxygen needs. I have also notified the patient information coordinator that all of his medicines will need called into his pharmacy and she is checking with Sejal Ochoa on what medicines she would like ordered. I called [facility] and spoke with Jose Guadalupe and order for nebulizer and neb meds sent to her. I informed her if oxygen is needed I will contact her. Clinical faxed to . CM will continue to follow and assist with discharge planning/needs. Physician Chief Of Pathology: Susan Faustin DCPIA - Discharge Planning Initial Assessment Updated by [email or web address]: Susan Faustin on 04/30/19 1:13 pm * Is the patient Alert and Oriented? Yes * How many steps to enter\exit or inside your home? 4/0 * PCP No PCP, trying to get him established with Dr. Nuno * Pharmacy [facility] in [place] * Preadmission Environment Home with Family * ADLs Independent * Equipment None * List name and contact numbers for known caregivers / representatives who currently or will assist patient after discharge: Aubree Goodrich - sister - [phone] * Verbal permission to speak to the caregivers and representatives has been obtained from the patient. Yes * Community resources currently utilized None * Additional services required to return to the preadmission environment? Yes * Can the patient safely return to the preadmission environment? Yes * Has this patient been hospitalized within the prior 30 days at any hospital? No Coverage Notice Reviewer: [id number] - Susan Faustin Notice Issued Date-Time: 04/30/2019 13:10 Notice Type: Patient Choice Letter Notice Delivered To: Family Member Relationship to Patient: Sister Primer Boxer Name: Aubree Goodrich Delivery Method: HAND - Hand Delivered Tangela Days: Prior Verbal Notification: Recipient Understood Notice: Yes Recipient Signature: Yes Med Rec Note Co-signed by Attending: Coverage Notice Comment: DOROTHY for [facility] [employer] DP export: 04/30/19 12:13 p Patient Name: ERICH TOUSSAINT Page [phone] at 1322 All edits/amendments must be made on the electronic document DICTATION DATE: 04/30/19 1321 PAPER REWINDER: MARTHA 04/30/19 1321 RPT#: [id number] DC DATE: STATUS: ADM IN [facility] [address] [place] [address] END OF REPORT
--- NOTE | 2019-04-30 13:46 | MORECARE ---
CASE MANAGEMENT DISCHARGE SUMMARY PATIENT: ERICH TOUSSAINT UNIT: [id number] ADM DATE: 04/28/19 AGE: 64 : 53 SEX: M ROOM/BED: D.2237 AUTHOR: REILLY,DOC PHYSICIAN: REFERRING PHYSICIAN: FRANCESCA BRUSH MD DATE OF SERVICE: 04/30/19 Discharge Plan Patient Name: ERICH TOUSSAINT Facility: [facility]:[place] : 1955 Planned Disposition: Home Anticipated Discharge Date: Discharge Date: Expected LOS: Initial Reviewer: [email or web address] Initial Review Date: 04/30/2019 Generated: 04/30/19 2:46 pm Comments DCP- Discharge Planning Updated by [id number]: Susan Kumarbrett on 04/30/19 12:[address] 6 MINUTE WALK TEST COMPLETED. HIS OXYGEN SATURATION DID NOT GET BELOW 90%, HE DOES NOT QUALIFY FOR OXYGEN. I INFORMED SHERLY WITH [facility] THAT HE WOULD ONLY NEED NEBULIZER, NEB MEDS AND THEY ARE ASKING FOR A 2 WHEELED WALKER. HE DOES NOT HAVE A WALKER AT HOME. I INFORMED THE PATIENT AND HIS SISTER THAT HE DOES NOT QUALIFY FOR INSURANCE TO PAY FOR HIS OXYGEN. CM WILL CONTINUE TO FOLLOW AND ASSIST WITH DISCHARGE PLANNING/NEEDS. DCP- Discharge Planning Updated by [email or web address]: Susan Faustin on 04/30/19 12:[address] Patient Name: ERICH TOUSSAINT Admission Status: ER Accout number: [id number] Admission Date: 04-28-2019 : 1955 Admission Diagnosis: Attending: FRANCESCA BRUSH Current LOS: 2 Anticipated DC Date: Planned Disposition: Home Primary Insurance: MEDICARE A & B Discharge Planning Comments: Received discharge orders. I met with the patient and his sister concerning discharge needs. He states he is living in his own home and a friend is staying with him. He plans on returning home and feels this is a safe discharge. His sister explains that he has been here from [place] for about a year and a half and has not taken any of his medicines since his move here. He also does not have oxygen or nebulizer here. She states he had them both when he was in [place]. DOROTHY for [employer] signed and I have asked RT to do a walk test to check for home oxygen needs. I have also notified the irrigator gravity flow that all of his medicines will need called into his pharmacy and she is checking with Sejal Ochoa on what medicines she would like ordered. I called [facility] and spoke with Sherly and order for nebulizer and neb meds sent to her. I informed her if oxygen is needed I will contact her. Clinical faxed to . CM will continue to follow and assist with discharge planning/needs. Utilization Management Manager: Susan Faustin DCPIA - Discharge Planning Initial Assessment Updated by [id number]: Susan Faustin on 04/30/19 1:13 pm * Is the patient Alert and Oriented? Yes * How many steps to enter\exit or inside your home? 4/0 * PCP No PCP, trying to get him established with Dr. Nuno * Pharmacy [facility] in [place] * Preadmission Environment Home with Family * ADLs Independent * Equipment None * List name and contact numbers for known caregivers / representatives who currently or will assist patient after discharge: Aubree Goodrich - sister - [phone] * Verbal permission to speak to the caregivers and representatives has been obtained from the patient. Yes * Community resources currently utilized None * Additional services required to return to the preadmission environment? Yes * Can the patient safely return to the preadmission environment? Yes * Has this patient been hospitalized within the prior 30 days at any hospital? No Coverage Notice Reviewer: [id number] - Susan Faustin Notice Issued Date-Time: 04/30/2019 13:10 Notice Type: Patient Choice Letter Notice Delivered To: Family Member Relationship to Patient: Sister Hydramatic Mechanic Name: Aubree Goodrich Delivery Method: HAND - Hand Delivered Tangela Days: Prior Verbal Notification: Recipient Understood Notice: Yes Recipient Signature: Yes Med Rec Note Co-signed by Attending: Coverage Notice Comment: DOROTHY for [employer] Last DP export: 04/30/19 12:22 p Patient Name: ERICH TOUSSAINT Page [id number] at 1346 All edits/amendments must be made on the electronic document DICTATION DATE: 04/30/19 1345 OCCUPATIONAL HEALTH NURSE: MARTHA 04/30/19 1345 RPT#: [id number] DC DATE: STATUS: ADM IN [facility] [address] [place] [address] END OF REPORT
--- NOTE | 2019-04-30 14:03 | MORECARE ---
CASE MANAGEMENT DISCHARGE SUMMARY PATIENT: ERICH TOUSSAINT UNIT: [id number] ADM DATE: 04/28/19 AGE: 64 : 53 SEX: M ROOM/BED: D.2237 AUTHOR: REILLY,DOC PHYSICIAN: REFERRING PHYSICIAN: FRANCESCA BRUSH MD DATE OF SERVICE: 04/30/19 Discharge Plan Patient Name: ERICH TOUSSAINT Facility: [facility]:[place] : 1955 Planned Disposition: Home Anticipated Discharge Date: Discharge Date: Expected LOS: Initial Reviewer: [email or web address] Initial Review Date: 04/30/2019 Generated: 04/30/19 3:03 pm Comments DCP- Discharge Planning Updated by [id number]: Susan Faustin on 04/30/19 12:[address] 6 MINUTE WALK TEST COMPLETED. HIS OXYGEN SATURATION DID NOT GET BELOW 90%, HE DOES NOT QUALIFY FOR OXYGEN. I INFORMED SHERLY WITH [facility] THAT HE WOULD ONLY NEED NEBULIZER, NEB MEDS AND THEY ARE ASKING FOR A 2 WHEELED WALKER. HE DOES NOT HAVE A WALKER AT HOME. I INFORMED THE PATIENT AND HIS SISTER THAT HE DOES NOT QUALIFY FOR INSURANCE TO PAY FOR HIS OXYGEN. CM WILL CONTINUE TO FOLLOW AND ASSIST WITH DISCHARGE PLANNING/NEEDS. DCP- Discharge Planning Updated by [id number]: Susan Faustin on 04/30/19 12:[address] Patient Name: ERICH TOUSSAINT Admission Status: ER Accout number: [id number] Admission Date: 04-28-2019 : 1955 Admission Diagnosis: Attending: FRANCESCA BRUSH Current LOS: 2 Anticipated DC Date: Planned Disposition: Home Primary Insurance: MEDICARE A & B Discharge Planning Comments: Received discharge orders. I met with the patient and his sister concerning discharge needs. He states he is living in his own home and a friend is staying with him. He plans on returning home and feels this is a safe discharge. His sister explains that he has been here from [place] for about a year and a half and has not taken any of his medicines since his move here. He also does not have oxygen or nebulizer here. She states he had them both when he was in [place]. DOROTHY for [facility] signed and I have asked RT to do a walk test to check for home oxygen needs. I have also notified the flow worker that all of his medicines will need called into his pharmacy and she is checking with Sejal Ochoa on what medicines she would like ordered. I called [facility] and spoke with Sherly and order for nebulizer and neb meds sent to her. I informed her if oxygen is needed I will contact her. Clinical faxed to . CM will continue to follow and assist with discharge planning/needs. Game Programmer: Susan Faustin DCPIA - Discharge Planning Initial Assessment Updated by [email or web address]: Susan Faustin on 04/30/19 1:13 pm * Is the patient Alert and Oriented? Yes * How many steps to enter\exit or inside your home? 4/0 * PCP No PCP, trying to get him established with Dr. Nuno * Pharmacy [facility] in [place] * Preadmission Environment Home with Family * ADLs Independent * Equipment None * List name and contact numbers for known caregivers / representatives who currently or will assist patient after discharge: Aubree Goodrich - sister - [phone] * Verbal permission to speak to the caregivers and representatives has been obtained from the patient. Yes * Community resources currently utilized None * Additional services required to return to the preadmission environment? Yes * Can the patient safely return to the preadmission environment? Yes * Has this patient been hospitalized within the prior 30 days at any hospital? No External Providers External Provider: [facility] Next Contact Date: Service Request Date: Service Type: Resolution: Reviewer: Comments: Coverage Notice Reviewer: [id number] - Susan Faustin Notice Issued Date-Time: 04/30/2019 13:10 Notice Type: Patient Choice Letter Notice Delivered To: Family Member Relationship to Patient: Sister Shoeshiner Name: Aubree Goodrich Delivery Method: HAND - Hand Delivered Tangela Days: Prior Verbal Notification: Recipient Understood Notice: Yes Recipient Signature: Yes Med Rec Note Co-signed by Attending: Coverage Notice Comment: DOROTHY for [facility] Last DP export: 04/30/19 12:46 p Patient Name: ERICH TOUSSAINT Page 60559 at 1403 All edits/amendments must be made on the electronic document DICTATION DATE: 04/30/191401 PADDING MACHINE OPERATOR: MARTHA 04/30/191401 RPT#: [id number] DC DATE: STATUS: ADM IN [facility] [address] [place] [address] END OF REPORT
--- NOTE | 2019-04-30 14:20 | MORECARE ---
CASE MANAGEMENT DISCHARGE SUMMARY PATIENT: ERICH TOUSSAINT UNIT: [id number] ADM DATE: 04/28/19 AGE: 64 : 51 SEX: M ROOM/BED: D.2237 AUTHOR: REILLY,DOC PHYSICIAN: REFERRING PHYSICIAN: FRANCESCA BRUSH MD DATE OF SERVICE: 04/30/19 Discharge Plan Patient Name: ERICH TOUSSAINT Facility: [facility]:[place] : 1955 Planned Disposition: Home Anticipated Discharge Date: Discharge Date: Expected LOS: Initial Reviewer: [email or web address] Initial Review Date: 04/30/2019 Generated: 04/30/19 3:20 pm Comments DCP- Discharge Planning Updated by [email or web address]: Susan Faustin on 04/30/19 1:[address] [facility] has called back and states he is not eligible for a nebulizer or walker until November of 2019 per insurance. He can burrell pay. His sister states they do not have the money. It is 90 dollars at [facility] and [facility]. I offered to see if case management can burrell pay for him and he states he will buy it when he gets his next check. He does not want to wait until I can see if we can change his medication to an inhaler. He states his sister has already gone to get the car. I encouraged him to buy the nebulizer, I have sent his neb meds to [facility], [facility]. Home today. DCP- Discharge Planning Updated by [email or web address]: Susan Faustin on 04/30/19 12:[address] 6 MINUTE WALK TEST COMPLETED. HIS OXYGEN SATURATION DID NOT GET BELOW 90%, HE DOES NOT QUALIFY FOR OXYGEN. I INFORMED SHERLY WITH [facility] THAT HE WOULD ONLY NEED NEBULIZER, NEB MEDS AND THEY ARE ASKING FOR A 2 WHEELED WALKER. HE DOES NOT HAVE A WALKER AT HOME. I INFORMED THE PATIENT AND HIS SISTER THAT HE DOES NOT QUALIFY FOR INSURANCE TO PAY FOR HIS OXYGEN. CM WILL CONTINUE TO FOLLOW AND ASSIST WITH DISCHARGE PLANNING/NEEDS. DCP- Discharge Planning Updated by [id number]: Susan Faustin on 04/30/19 12:[address] Patient Name: ERICH TOUSSAINT Admission Status: ER Accout number: [id number] Admission Date: 04-28-2019 : 1955 Admission Diagnosis: Attending: FRANCESCA BRUSH Current LOS: 2 Anticipated DC Date: Planned Disposition: Home Primary Insurance: MEDICARE A & B Discharge Planning Comments: Received discharge orders. I met with the patient and his sister concerning discharge needs. He states he is living in his own home and a friend is staying with him. He plans on returning home and feels this is a safe discharge. His sister explains that he has been here from [place] for about a year and a half and has not taken any of his medicines since his move here. He also does not have oxygen or nebulizer here. She states he had them both when he was in [place]. DOROTHY for [facility] signed and I have asked RT to do a walk test to check for home oxygen needs. I have also notified the retail coordinator that all of his medicines will need called into his pharmacy and she is checking with Sejal Ochoa on what medicines she would like ordered. I called [facility] and spoke with Sherly and order for nebulizer and neb meds sent to her. I informed her if oxygen is needed I will contact her. Clinical faxed to . CM will continue to follow and assist with discharge planning/needs. Health Sciences Manager: Susan Faustin [facility] - Discharge Planning Initial Assessment Updated by [id number]: Susan Faustin on 04/30/19 1:13 pm * Is the patient Alert and Oriented? Yes * How many steps to enter\exit or inside your home? 4/0 * PCP No PCP, trying to get him established with Dr. Nuno * Pharmacy [facility] in [place] * Preadmission Environment Home with Family * ADLs Independent * Equipment None * List name and contact numbers for known caregivers / representatives who currently or will assist patient after discharge: Aubree Goodrich - sister - [phone] * Verbal permission to speak to the caregivers and representatives has been obtained from the patient. Yes * Community resources currently utilized None * Additional services required to return to the preadmission environment? Yes * Can the patient safely return to the preadmission environment? Yes * Has this patient been hospitalized within the prior 30 days at any hospital? No Coverage Notice Reviewer: [id number] - Susan Faustin Notice Issued Date-Time: 04/30/2019 13:10 Notice Type: Patient Choice Letter Notice Delivered To: Family Member Relationship to Patient: Sister Technology Lab Teacher Name: Aubree Goodrich Delivery Method: HAND - Hand Delivered Tangela Days: Prior Verbal Notification: Recipient Understood Notice: Yes Recipient Signature: Yes Med Rec Note Co-signed by Attending: Coverage Notice Comment: DOROTHY for [facility] DP export: 04/30/19 1:03 p Patient Name: ERICH TOUSSAINT Page [id number] at 1420 All edits/amendments must be made on the electronic document DICTATION DATE: 04/30/19 142 ADJUNCT LECTURER: MARTHA 04/30/19 1420 RPT#: [id number] DC DATE: STATUS: ADM IN [facility] [address] [place] [address] END OF REPORT
--- NOTE | 2019-04-30 14:48 | NUR ---
PATIENT TAKEN BY DONELL TO PRIVATE CAR
--- NOTE | 2019-05-06 11:49 | MORECARE ---
CASE MANAGEMENT DISCHARGE SUMMARY PATIENT: ERICH TOUSSAINT UNIT: [id number] ADM DATE: 04/28/19 AGE: 64 : 51 SEX: M ROOM/BED: D.2237 AUTHOR: REILLYDOC PHYSICIAN: REFERRING PHYSICIAN: FRANCESCA BRUSH MD DATE OF SERVICE: 05/06/19 Discharge Plan Patient Name: ERICH TOUSSAINT Facility: [facility]:[place] : 1955 Planned Disposition: Home Anticipated Discharge Date: Discharge Date: 04/30/2019 Expected LOS: 0 Initial Reviewer: [email or web address] Initial Review Date: 04/30/2019 Generated: 05/06/19 12:49 pm Comments DCP- Discharge Planning Updated by [id number]: Susan Kumarbrett on 04/30/19 1:[address] [facility] has called back and states he is not eligible for a nebulizer or walker until November of 2019 per insurance. He can burrell pay. His sister states they do not have the money. It is 90 dollars at [facility] and [facility]. I offered to see if case management can burrell pay for him and he states he will buy it when he gets his next check. He does not want to wait until I can see if we can change his medication to an inhaler. He states his sister has already gone to get the car. I encouraged him to buy the nebulizer, I have sent his neb meds to [facility], [facility]. Home today. DCP- Discharge Planning Updated by [id number]: Susan Kumarbrett on 04/30/19 12:[address] 6 MINUTE WALK TEST COMPLETED. HIS OXYGEN SATURATION DID NOT GET BELOW 90%, HE DOES NOT QUALIFY FOR OXYGEN. I INFORMED SHERLY WITH [facility] THAT HE WOULD ONLY NEED NEBULIZER, NEB MEDS AND THEY ARE ASKING FOR A 2 WHEELED WALKER. HE DOES NOT HAVE A WALKER AT HOME. I INFORMED THE PATIENT AND HIS SISTER THAT HE DOES NOT QUALIFY FOR INSURANCE TO PAY FOR HIS OXYGEN. CM WILL CONTINUE TO FOLLOW AND ASSIST WITH DISCHARGE PLANNING/NEEDS. DCP- Discharge Planning Updated by [id number]: Susan Kumarbrett on 04/30/19 12:[address] Patient Name: ERICH TOUSSAINT Admission Status: ER Accout number: [id number] Admission Date: 04-28-2019 : 1955 Admission Diagnosis: Attending: FRANCESCA BRUSH Current LOS: 2 Anticipated DC Date: Planned Disposition: Home Primary Insurance: MEDICARE A & B Discharge Planning Comments: Received discharge orders. I met with the patient and his sister concerning discharge needs. He states he is living in his own home and a friend is staying with him. He plans on returning home and feels this is a safe discharge. His sister explains that he has been here from [place] for about a year and a half and has not taken any of his medicines since his move here. He also does not have oxygen or nebulizer here. She states he had them both when he was in [place]. DOROTHY for [facility] signed and I have asked RT to do a walk test to check for home oxygen needs. I have also notified the solution coordinator that all of his medicines will need called into his pharmacy and she is checking with Sejal Ochoa on what medicines she would like ordered. I called [facility] and spoke with Sherly and order for nebulizer and neb meds sent to her. I informed her if oxygen is needed I will contact her. Clinical faxed to . CM will continue to follow and assist with discharge planning/needs. Information And Referral Director: Susan Faustin [facility] - Discharge Planning Initial Assessment Updated by [id number]: Susan Faustin on 04/30/19 1:13 pm * Is the patient Alert and Oriented? Yes * How many steps to enter\exit or inside your home? 4/0 * PCP No PCP, trying to get him established with Dr. Nuno * Pharmacy [facility] in [place] * Preadmission Environment Home with Family * ADLs Independent * Equipment None * List name and contact numbers for known caregivers / representatives who currently or will assist patient after discharge: Aubree Goodrich - sister - [phone] * Verbal permission to speak to the caregivers and representatives has been obtained from the patient. Yes * Community resources currently utilized None * Additional services required to return to the preadmission environment? Yes * Can the patient safely return to the preadmission environment? Yes * Has this patient been hospitalized within the prior 30 days at any hospital? No Coverage Notice Reviewer: [id number] - Susan Faustin Notice Issued Date-Time: 04/30/2019 13:10 Notice Type: Patient Choice Letter Notice Delivered To: Family Member Relationship to Patient: Sister Clay Pigeon Loader Name: Aubree Goodrich Delivery Method: HAND - Hand Delivered Tangela Days: Prior Verbal Notification: Recipient Understood Notice: Yes Recipient Signature: Yes Med Rec Note Co-signed by Attending: Coverage Notice Comment: DOROTHY for [facility] L[facility]z DP export: 04/30/19 1:20 p Patient Name: ERICH TOUSSAINT Page [phone] at 1149 All edits/amendments must be made on the electronic document DICTATION DATE: 05/06/19 1149 MD SENIOR RESEARCH SCIENTIST: MARTHA 05/06/19 1149 RPT#: [id number] DC DATE:04/30/19 STATUS: DIS IN [facility] [address] [place] [address] END OF REPORT
== END 2019-04-30 14:49 | disposition home or self-care (01) | DRG 67 ==
LOC: D.ER 11:38 → D.MS 16:13
PROVIDERS: Emergency Medicine; ADMIT Internal Medicine Nephrology; ATTEND Internal Medicine Nephrology
DX: I65.23 Occlusion and stenosis of bilateral carotid arteries (principal); J96.02 Acute respiratory failure with hypercapnia; J96.01 Acute respiratory failure with hypoxia; J84.9 Interstitial pulmonary disease, unspecified; F17.213 Nicotine dependence, cigarettes, with withdrawal; F10.20 Alcohol dependence, uncomplicated; E83.42 Hypomagnesemia; W01.0XXA Fall on same level from slipping, tripping and stumbling without subsequent striking against object, initial encounter; K75.9 Inflammatory liver disease, unspecified; I25.10 Atherosclerotic heart disease of native coronary artery without angina pectoris; I73.9 Peripheral vascular disease, unspecified; J43.9 Emphysema, unspecified

== ENCOUNTER → 2019-06-18 12:01 | Outpatient (CLI) | payer MEDICARE ==
[2019-04-29 14:58] VITALS: BMI 21.6
[~2019-06-18 12:01] MED LIST changes: +ALBUTEROL SULF8.5 GM INH; +THERAGRAN M [BK1 TAB PO
== END | disposition home or self-care (01) ==
LOC: D.CT 12:01
PROVIDERS: ATTEND Family Medicine
DX: I65.29 Occlusion and stenosis of unspecified carotid artery (principal)

== ENCOUNTER 2020-12-05 13:09 | Inpatient (IN) | payer MEDICARE ==
[~2020-12-05] VITALS: Ht 165.1 cm; Wt 63.6 kg
[2020-12-05 13:33] LABS: BASOPHILS 0.6 % (0-2); EOSINOPHILS 1.8 % (0-7); HEMATOCRIT 37.7 % (42.0-54.0); HEMOGLOBIN 11.8 g/dL (13.5-17.5); IMMATURE GRANULOCYTES 0.2 % (0-5); LYMPHOCYTES 13.5 % (15-50); MCH 29.5 pg (26.0-34.0); MCHC 31.3 g/dL (31.0-37.0); MCV 94.3 fL (80.0-100.0); MEAN PLATELET VOLUME 9.3 fL (7.4-10.4); MONOCYTES 9.9 % (2-11); NEUTROPHIL ABS# 7.13 10x3/uL (1.78-5.38); RDW 14.4 % (11.5-14.5); WBC 9.6 10x3/uL (4.8-10.8)
[2020-12-05 13:34] LABS: PLATELET COUNT 395 10x3/uL (130-400)
[2020-12-05 13:40] LABS: CALC OSMOLALITY 267 mosm/kg (275-300); CALCIUM 8.6 mg/dL (8.5-10.1); CHLORIDE - SERUM 96 mmol/L (98-107); CREATININE - SERUM 0.5 mg/dL (0.6-1.3); GLUCOSE 87 mg/dL (74-106); POTASSIUM - SERUM 4.4 mmol/L (3.5-5.1); SODIUM 135 mmol/L (136-145); UREA NITROGEN 9 mg/dL (7-18); eGFR NON AFRICAN AMERICAN > 90 mL/min (90-120)
[2020-12-05 13:41] LABS: APTT 28.4 SECONDS (22.8-39.4); INR 1.11 (0.85-1.17); PROTIME 13.3 SECONDS (11.6-15.0)
[2020-12-05 13:43] VITALS: BP 108/76
[2020-12-05 13:55] LABS: ALBUMIN 2.6 g/dL (3.4-5.0); ALKALINE PHOSPHATASE 99 U/L (30-120); ALT (SGPT) 13 U/L (10-68); BILIRUBIN - TOTAL 0.25 mg/dL (0.2-1.3); CKMB 1.5 U/L (0.0-3.6); CREATINE KINASE 32 UL (21-232); PROTEIN - SERUM 6.9 g/dL (6.4-8.2)
[2020-12-05 13:56] LABS: TROPONIN-I < 0.017 ng/mL (0.000-0.060)
[2020-12-05 14:26] LABS: SARS-CoV-2 ANTIGEN NEGATIVE- SARS-COV-2 (NEGATIVE)
[2020-12-05 14:31] LABS: BILIRUBIN NEGATIVE (NEGATIVE); KETONE NEGATIVE (NEGATIVE); NITRITE NEGATIVE (NEGATIVE); UROBILINOGEN NORMAL mg/dL (< 2)
[2020-12-05 14:32] LABS: WHITE CELLS - URINE 25-50 HPF (0-1)
[2020-12-05 14:33] LABS: BACTERIA FEW HPF (NONE SEEN); SQUAMOUS EPITHELIAL NONE SEEN HPF (0-4)
[2020-12-05 15:58] LABS: C-REACTIVE PROTEIN 3.1 mg/dL (0.0-0.9)
[2020-12-05 16:42] LABS: ERYTHROCYTE SEDIMENTATION RATE 47 mm/hr (0-20)
[2020-12-05 18:15] LABS: INFLUENZA TYPE A NEGATIVE (NEGATIVE); INFLUENZA TYPE B NEGATIVE (NEGATIVE)
--- NOTE | 2020-12-05 19:56 | NUR ---
PT RECIEVED VIA EMS. SONG CATH PRESENT AND MD AWARE. COCCXY WITH STAGE 4 PRESSURE ULCER WITH A FOUL SMELL NOTED. CLEANED AND DRESSED WITH A MEPILEX DRESSING. ALSO NOTED A RIGHT HEEL PRESSURE ULCER THAT IS SCABBED OVER AND A LEFT WRIST BLACK SCAB POSSIBLY A PRESSURE ULCER. PT HAS BEEN PLACED ON BIPAP PER MD ORDERS AND IS TOLERATING WELL. HE IS ABLE TO TOLERATE 4L OF O2 WHEN HE IS EATING AND TAKING A BREAK FROM THE MASK. FAMILY HAS BEEN UPDATED AND IS AWARE OF HIS ADMISSION ORDERS AND CONDITION. ENCOURAGED HIM TO STAY ON HIS SIDE WHEN POSSIBLE. WEDGE AND A BLANKET IN USE AT THIS TIME FOR PRESSURE RELIEF. VSS AND CALL LIGHT IN REACH.
--- NOTE | 2020-12-05 20:02 | NUR ---
NURSING NOTE FROM 12/05/201955 WAS Deacon KING NOTE. CHARTED UNDER THE WRONG LOGIN.
[2020-12-05 21:00] VITALS: BP 132/86
--- NOTE | 2020-12-05 21:00 | NUR ---
report from abdirahman rainey. pt resting in strecher. pt given water to drink. pt has Bipap in place tolerating well but states that doesnt like it. pt informed it will help him get better. pt ok with poc.
[2020-12-05 23:00] VITALS: BP 122/84
--- NOTE | 2020-12-06 | NUR ---
PT PULLING OFF MASK PT STATES THAT THE BIPAP IS ALARMING AND WAKING HIM UP. RESP CALLED TO LOOK AT BIPAP MACHINE.
--- NOTE | 2020-12-06 02:00 | NUR ---
BAPIP HAD TO BE READJUSTED. PT TALKED INTO PUTTING BIPAP BACK ON. PT GIVEN WATER TO DRINK
[2020-12-06 03:00] VITALS: BP 119/86
--- NOTE | 2020-12-06 05:36 | NUR ---
PER PT REQUEST TO STOP WEARING BIPAP. RESP CALLED. PT PLACED ON 10L VIA HIGH FLOW. PT GIVEN COKE AND JELLO AT THIS TIME. PT SITTING UP IN BED EATING AT THIS TIME.
[2020-12-06 05:47] LABS: BASOPHILS 0 % (0-2); EOSINOPHILS 0 % (0-7); HEMATOCRIT 33.5 % (42.0-54.0); HEMOGLOBIN 10.6 g/dL (13.5-17.5); LYMPHOCYTE ABS# 0.57 10x3/uL (1.32-3.57); LYMPHOCYTES 11.8 % (15-50); MCH 29.2 pg (26.0-34.0); MCHC 31.6 g/dL (31.0-37.0); MEAN PLATELET VOLUME 9.4 fL (7.4-10.4); MONOCYTES 1.5 % (2-11); NEUTROPHIL ABS# 4.18 10x3/uL (1.78-5.38); NEUTROPHILS 86.7 % (40-80); PLATELET COUNT 433 10x3/uL (130-400); RBC 3.63 10x6/uL (4.20-6.10); RDW 14.2 % (11.5-14.5)
[2020-12-06 05:52] LABS: MCV 92.3 fL (80.0-100.0); WBC 4.8 10x3/uL (4.8-10.8)
[2020-12-06 06:01] LABS: ALBUMIN 2.4 g/dL (3.4-5.0); ALKALINE PHOSPHATASE 89 U/L (30-120); ALT (SGPT) 15 U/L (10-68); BILIRUBIN - TOTAL 0.15 mg/dL (0.2-1.3); CALCIUM 8.8 mg/dL (8.5-10.1); CARBON DIOXIDE 33.1 mmol/L (21.0-32.0); CHLORIDE - SERUM 95 mmol/L (98-107); CREATININE - SERUM 0.5 mg/dL (0.6-1.3); POTASSIUM - SERUM 4.6 mmol/L (3.5-5.1); PROTEIN - SERUM 6.7 g/dL (6.4-8.2); SODIUM 133 mmol/L (136-145); eGFR NON AFRICAN AMERICAN > 90 mL/min (90-120)
[2020-12-06 06:06] LABS: CALC OSMOLALITY 270 mosm/kg (275-300); GLUCOSE 173 mg/dL (74-106); UREA NITROGEN 14 mg/dL (7-18)
[2020-12-06 06:46] VITALS: BP 90/53
[2020-12-06 07:45] VITALS: BP 90/53
--- NOTE | 2020-12-06 10:56 | NUR ---
1000 CC OUT OF SONG CATH. PT RESTING IN BED, NO COMPLAINTS VOICED.
[2020-12-06 10:57] VITALS: BP 137/53
[2020-12-07 07:26] LABS: BASOPHILS 0 % (0-2); EOSINOPHILS 0 % (0-7); HEMATOCRIT 32.9 % (42.0-54.0); HEMOGLOBIN 10.3 g/dL (13.5-17.5); IMMATURE GRANULOCYTES 0.1 % (0-5); LYMPHOCYTE ABS# 0.61 10x3/uL (1.32-3.57); LYMPHOCYTES 6.9 % (15-50); MCH 28.9 pg (26.0-34.0); MCHC 31.3 g/dL (31.0-37.0); MCV 92.2 fL (80.0-100.0); MEAN PLATELET VOLUME 9.6 fL (7.4-10.4); MONOCYTES 4.8 % (2-11); NEUTROPHIL ABS# 7.74 10x3/uL (1.78-5.38); NEUTROPHILS 88.2 % (40-80); PLATELET COUNT 470 10x3/uL (130-400); RBC 3.57 10x6/uL (4.20-6.10); RDW 14.2 % (11.5-14.5)
[2020-12-07 07:43] LABS: WBC 8.8 10x3/uL (4.8-10.8)
--- NOTE | 2020-12-07 07:59 | NUR ---
REPORT CALLED TO VELMA GARCIA
[2020-12-07 08:00] LABS: ALBUMIN 2.4 g/dL (3.4-5.0); ALKALINE PHOSPHATASE 78 U/L (30-120); ALT (SGPT) 13 U/L (10-68); BILIRUBIN - TOTAL 0.21 mg/dL (0.2-1.3); CALC OSMOLALITY 272 mosm/kg (275-300); CALCIUM 8.6 mg/dL (8.5-10.1); CARBON DIOXIDE 36.6 mmol/L (21.0-32.0); CHLORIDE - SERUM 96 mmol/L (98-107); CREATININE - SERUM 0.4 mg/dL (0.6-1.3); GLUCOSE 136 mg/dL (74-106); PROTEIN - SERUM 6.4 g/dL (6.4-8.2); SODIUM 135 mmol/L (136-145); UREA NITROGEN 16 mg/dL (7-18); eGFR NON AFRICAN AMERICAN > 90 mL/min (90-120)
--- NOTE | 2020-12-07 10:03 | NUR ---
PT ARRIVED ON FLOOR VIA STRETCHER. ALERT AND ORIENTED, UP WITH ASSIST. PT IS VERY UPSET AND VERBALLY AGRESSIVE, DEMANDING TO SPEAK WITH A DR STATING HE DOESN'T UNDERSTAND WHY HE WAS ADMITTED AND THAT "IT'S BULLSHIT THAT IT'S 929 THAT I HAVEN'T EVEN SEEN A DR AND YOU OBVIOUSLY DON'T KNOW WHAT THE HELL YOU'RE TALKING ABOUT!" ATTEMPTED TO INFORM PT ON ADMITTING DIAGNOSIS, PT WAS UNRECEPTIVE AND STATED I WAS NOT GIVING HIM THE ANSWERS HE WANTED TO HEAR. PT CONTINOULSY TAKES O2 ON AND OFF, SATS AT 89/90% ON ROOM AIR. PLACED O2 BACK ON FACE. PT HAS SONG AND DMENADS I DO NOT REMOVE IT BECAUSE HE DOESN'T URINATE ON HIMSELF. CL IN REACH, SRX2. TOOK ALL MEDICATIONS WIHTOUT NOTED OR REMORTED COMPLICATIONS.
[2020-12-07 11:00] VITALS: BP 110/72
[2020-12-07 13:33] VITALS: BP 110/72; Ht 165.1 cm; Wt 63.6 kg
[2020-12-07 14:40] VITALS: BP 110/70
--- NOTE | 2020-12-07 17:25 | NUR ---
PT CHOKED WHILE ATTEMPTING TO SWALLOW PORK BITE. PORK CAME UP, PT RECOVERED AFTER MODERATE COUGHING SPELL. INFROMED DR. YOUNG. BED AT 90 DEGREES, PT CURRENTLY NOT COUGHING CL IN REACH, SRX2.
--- NOTE | 2020-12-07 18:29 | NUR ---
PT AWAKE AND ORIENTED, PT CONTINUOUSLY SCREAMING OUT FOR MISBAH AND ESTEVAN. ASSISTED PT TO BEDSIDE COMMODE, PT STATED HE WALKS AT HOME. PT DID NOT DO WELL DURING TRANSFER AND WAS A LIFT BOTH TO AND FROM BS. CL IN REACH, SRX2, BED ALARM ON AND ACTIVE.
--- NOTE | 2020-12-07 19:12 | NUR ---
LYING IN BED AWAKE, ALERT, ORIENTED. SPEAKS TO NURSE, DENIES ANY NEEDS. NO DISTRESS NOTED.
--- NOTE | 2020-12-07 20:22 | NUR ---
MEDS ADMINISTERED/ORDER, PT TOLERATED ALL WELL. NO DISTRESS NOTED.
[2020-12-07 20:36] VITALS: BP 145/64
[2020-12-07 22:48] VITALS: BP 129/75
[2020-12-08 04:37] VITALS: BP 112/71
--- NOTE | 2020-12-08 05:45 | NUR ---
LYING IN BED W/EYES OPEN AWAKE, ALERT, 02 IN PROGRESS/ORDER. AM MEDS ADMINISTERED/ORDER, NO DISTRESS NOTED. PT HAD A BED BATH THIS AM.
[2020-12-08 06:56] LABS: BASOPHILS 0 % (0-2); EOSINOPHILS 0 % (0-7); HEMATOCRIT 34.8 % (42.0-54.0); HEMOGLOBIN 10.9 g/dL (13.5-17.5); IMMATURE GRANULOCYTES 0.1 % (0-5); LYMPHOCYTE ABS# 0.78 10x3/uL (1.32-3.57); LYMPHOCYTES 10.8 % (15-50); MCH 29.1 pg (26.0-34.0); MCHC 31.3 g/dL (31.0-37.0); MEAN PLATELET VOLUME 9.7 fL (7.4-10.4); MONOCYTES 8.7 % (2-11); NEUTROPHIL ABS# 5.83 10x3/uL (1.78-5.38); NEUTROPHILS 80.4 % (40-80); PLATELET COUNT 436 10x3/uL (130-400); RBC 3.74 10x6/uL (4.20-6.10); RDW 14.6 % (11.5-14.5); WBC 7.3 10x3/uL (4.8-10.8)
[2020-12-08 07:23] LABS: ALBUMIN 2.5 g/dL (3.4-5.0); ALKALINE PHOSPHATASE 72 U/L (30-120); ALT (SGPT) 15 U/L (10-68); CALC OSMOLALITY 271 mosm/kg (275-300); CALCIUM 8.5 mg/dL (8.5-10.1); CARBON DIOXIDE 31.5 mmol/L (21.0-32.0); CHLORIDE - SERUM 96 mmol/L (98-107); CREATININE - SERUM 0.5 mg/dL (0.6-1.3); GLUCOSE 116 mg/dL (74-106); POTASSIUM - SERUM 5.1 mmol/L (3.5-5.1); PROTEIN - SERUM 6.1 g/dL (6.4-8.2); SODIUM 134 mmol/L (136-145); UREA NITROGEN 20 mg/dL (7-18); eGFR NON AFRICAN AMERICAN > 90 mL/min (90-120)
--- NOTE | 2020-12-08 07:54 | NUR ---
PT RESTING IN BED WITH EYES OPEN CALL LIGHT IN REACH WILL MONITER
[2020-12-08 08:44] VITALS: BP 131/69
[2020-12-08 13:02] VITALS: BP 115/66
--- NOTE | 2020-12-08 14:21 | NUR ---
I have reviewed this patient and I concur with the Shift Assessment completed by the Licensed Practical Nurse today this shift.
[2020-12-08 16:08] VITALS: BP 118/73
--- NOTE | 2020-12-08 17:00 | NUR ---
PT TERESE IN BED WATCHING TV EATING SUPPER CALL LIGHT IN REACH WILL MONITER
--- NOTE | 2020-12-08 19:07 | NUR ---
LYING IN BED AWAKE, ALERT, ORIENTED. COKE OVER ICE BROUGHT TO ROOM/REQUEST, PT DENIES ANY FURTHER NEEDS. NO DISTRESS NOTED.
--- NOTE | 2020-12-08 21:04 | NUR ---
MEDS ADMINISTERED/ORDER, PT TOLERATED ALL WELL. DENIES ANY FURTHER NEEDS AT THIS TIME.
[2020-12-08 21:50] VITALS: BP 122/74
[2020-12-09 01:48] VITALS: BP 107/71
[2020-12-09 04:28] VITALS: BP 116/79
--- NOTE | 2020-12-09 05:00 | NUR ---
LYING IN BED W/EYES CLOSED, RESP EVEN AND UNLABORED W/02 IN PROGRESS/ORDER. NO DISTRESS NOTED. MEDS ADMINISTERED/ORDER W/O DIFFICULTY.
[2020-12-09 06:24] LABS: BASOPHILS 0 % (0-2); EOSINOPHILS 0 % (0-7); HEMATOCRIT 35.2 % (42.0-54.0); HEMOGLOBIN 11.2 g/dL (13.5-17.5); IMMATURE GRANULOCYTES 0.2 % (0-5); LYMPHOCYTE ABS# 0.82 10x3/uL (1.32-3.57); LYMPHOCYTES 12.8 % (15-50); MCH 29.1 pg (26.0-34.0); MCHC 31.8 g/dL (31.0-37.0); MCV 91.4 fL (80.0-100.0); MEAN PLATELET VOLUME 9.8 fL (7.4-10.4); MONOCYTES 7.8 % (2-11); NEUTROPHIL ABS# 5.07 10x3/uL (1.78-5.38); NEUTROPHILS 79.2 % (40-80); PLATELET COUNT 476 10x3/uL (130-400); RBC 3.85 10x6/uL (4.20-6.10); RDW 14.6 % (11.5-14.5); WBC 6.4 10x3/uL (4.8-10.8)
[2020-12-09 06:45] LABS: ALBUMIN 2.3 g/dL (3.4-5.0); ALKALINE PHOSPHATASE 67 U/L (30-120); ALT (SGPT) 14 U/L (10-68); BILIRUBIN - TOTAL 0.15 mg/dL (0.2-1.3); CALC OSMOLALITY 271 mosm/kg (275-300); CALCIUM 8.2 mg/dL (8.5-10.1); CARBON DIOXIDE 35.5 mmol/L (21.0-32.0); CHLORIDE - SERUM 99 mmol/L (98-107); CREATININE - SERUM 0.5 mg/dL (0.6-1.3); GLUCOSE 112 mg/dL (74-106); PROTEIN - SERUM 6.1 g/dL (6.4-8.2); SODIUM 135 mmol/L (136-145); UREA NITROGEN 15 mg/dL (7-18); eGFR NON AFRICAN AMERICAN > 90 mL/min (90-120)
[2020-12-09 06:46] LABS: POTASSIUM - SERUM 4.2 mmol/L (3.5-5.1)
--- NOTE | 2020-12-09 08:48 | NUR ---
AM MEDS GIVEN AT THIS TIME. PT SITTING ON SIDE OF BED EATING BREAKFAST TRAY. RR EVEN NON LABORED. PRODUCTIVE COUGH NOTED. O2 IN PLACE VIA NC. NO NEEDS VOICED AT THIS TIME. CLWR.
[2020-12-09 09:00] VITALS: BP 100/60
--- NOTE | 2020-12-09 11:07 | NUR ---
Nutrition Follow-up: Good/fair PO intake. Covid PCR now resulted (-). Diet: Cardiac PO intake: 75% x 3 yesterday Wt: 140# (12/07) Labs noted: Na 135, Glu 112, Ca 8.2, Alb 2.3 Meds noted: Florajen, Protonix, Solumedrol, zinc sulfate, vit C, vit D, electrolyte protocol -Encourage PO intake and honor food preferences within diet restrictions. -RD will follow up within 5 days if pt still admitted.
--- NOTE | 2020-12-09 12:59 | NUR ---
NEW IV PLACED D/T LEAKING AROUND PREVIOUS SITE. X1 ATTEMPT TO RIGHT FOREARM 20G. BLOOD RETURN NOTED. NO NEEDS VOICED BY PT AT THIS TIME. RR EVEN NON LABORED. CLWR.
[2020-12-09 13:31] VITALS: BP 110/61
--- NOTE | 2020-12-09 16:40 | MORECARE ---
CASE MANAGEMENT DISCHARGE SUMMARY PATIENT: ERICH TOUSSAINT UNIT: [id number] ADM DATE: 12/05/20 AGE: 65 : 51 SEX: M ROOM/BED: D.2135 AUTHOR: JOYA GROVER PHYSICIAN: REFERRING PHYSICIAN: LUCÍA MAKI MD DATE OF SERVICE: 12/09/20 Discharge Plan Patient Name: ERICH TOUSSAINT [facility] [facility] 1955 Planned Disposition: Inpatient Rehab Anticipated Discharge Date: Discharge Date: Expected LOS: Initial Reviewer: [email or web address] Initial Review Date: 12/05/2020 Generated: 12/09/20 5:40 pm DCPIA - Discharge Planning Initial Assessment Updated by [email or web address]: Desiree Cavanaugh on 12/09/20 4:39 pm * Is the patient Alert and Oriented? Yes * How many steps to enter\exit or inside your home? * PCP Dr. Nuno * Pharmacy [facility] * Preadmission Environment Home with Family * ADLs Total Dependent * Equipment Bedside Commode Wheelchair * List name and contact numbers for known caregivers / representatives who currently or will assist patient after discharge: Apple Goodrich Sister ([phone]) * Verbal permission to speak to the caregivers and representatives has been obtained from the patient. Yes * Additional services required to return to the preadmission environment? Yes * Can the patient safely return to the preadmission environment? No * Has this patient been hospitalized within the prior 30 days at any hospital? No Patient Name: ERICH TOUSSAINT Page 16538 at 1640 All edits/amendments must be made on the electronic document DICTATION DATE: 12/09/20 1640 X RAY OPERATOR: MARTHA 12/09/20 1640 RPT#: [id number] DC DATE: STATUS: ADM IN [facility] [address] [place] [address] END OF REPORT
--- NOTE | 2020-12-09 17:03 | MORECARE ---
CASE MANAGEMENT DISCHARGE SUMMARY PATIENT: ERICH RAM UNIT: [id number] ADM DATE: 12/05/20 AGE: 65 : 51 SEX: M ROOM/BED: D.8515 AUTHOR: REILLY,DOC PHYSICIAN: REFERRING PHYSICIAN: LUCÍA MAKI MD DATE OF SERVICE: 12/09/20 Discharge Plan Patient Name: ERICH RAM Facility: [facility]:[place] : 1955 Planned Disposition: Inpatient Rehab Anticipated Discharge Date: Discharge Date: Expected LOS: Initial Reviewer: [email or web address] Initial Review Date: 12/05/2020 Generated: 12/09/20 6:02 pm Comments DCP- Discharge Planning Updated by [email or web address]: Desiree Cavanaugh on 12/09/20 3:[address] Patient Name: ERICH RAM Admission Status: ER Accout number: [id number] Admission Date: 12-05-2020 : 1955 Admission Diagnosis:SHORTNESS OF BREATH Attending: LUCÍA JACOB Current LOS: 4 Anticipated DC Date: Planned Disposition: Inpatient Rehab Primary Insurance: MEDICARE A & B Discharge Planning Comments: Spoke with Patient's sister Apple who stated she would like for him to receive inpatient rehab services in [facility]. She stated he was admitted to this facility for 20 days previously. This plan was discussed with Mr. Ram who was in agreement with receiving inpatient rehab services. Apple then called back and stated would like for Mr. Ram to be evaluated for long-term care because his previous caregivers/roommates were moving out of state and would no longer be able to assist with his care. Will discus this discharge plan with patient to obtain his consent. Email Production Specialist: Desiree Cavanaugh DCPIA - Discharge Planning Initial Assessment Updated by [email or web address]: Desiree Cavanaugh on 12/09/20 4:39 pm * Is the patient Alert and Oriented? Yes * How many steps to enter\exit or inside your home? * PCP Dr. Nuno * Pharmacy [facility] * Preadmission Environment Home with Family * ADLs Total Dependent * Equipment Bedside Commode Wheelchair * List name and contact numbers for known caregivers / representatives who currently or will assist patient after discharge: Apple Goodrich Sister ([phone]) * Verbal permission to speak to the caregivers and representatives has been obtained from the patient. Yes * Additional services required to return to the preadmission environment? Yes * Can the patient safely return to the preadmission environment? No * Has this patient been hospitalized within the prior 30 days at any hospital? No Last DP export: 12/09/20 3:40 p Patient Name: ERICH RAM Page [phone] at 1703 All edits/amendments must be made on the electronic document DICTATION DATE: 12/09/201702 QUALITY SYSTEMS MANAGER: MARTHA 12/09/201702 RPT#: [id number] DC DATE: STATUS: ADM IN [facility] [address] [place] [address] END OF REPORT
--- NOTE | 2020-12-09 17:33 | NUR ---
PT LYING IN BED WITH HOB RAISED WATCHING TV. RR EVEN NON LABORED O2 IN PLACE VIA NC. NO NEEDS VOICED AT THIS TIME. CLWR.
[2020-12-09 21:02] VITALS: BP 118/92
[2020-12-10] VITALS: BP 114/69
--- NOTE | 2020-12-10 02:08 | NUR ---
PATIENT LYING SEMI FOWLERS AAOX4, RESP EVEN AND NON LABORED, NO S/S OF DISTRESS, MEDICATIONS ADMINSITERED WITHOUT COMPLICATIONS, IV MEDS INFUSING, WATER PROVIDED, NO FURTHER NEEDS AT THIS TIME, CLIR, BLP
[2020-12-10 04:00] VITALS: BP 139/80
--- NOTE | 2020-12-10 05:31 | NUR ---
I have reviewed this patient and I concur with the Shift Assessment completed by the Licensed Practical Nurse today this shift.
[2020-12-10 05:56] LABS: BASOPHILS 0 % (0-2); EOSINOPHILS 0 % (0-7); HEMATOCRIT 33.8 % (42.0-54.0); HEMOGLOBIN 10.7 g/dL (13.5-17.5); IMMATURE GRANULOCYTES 0.3 % (0-5); LYMPHOCYTE ABS# 0.91 10x3/uL (1.32-3.57); MCH 28.8 pg (26.0-34.0); MCHC 31.7 g/dL (31.0-37.0); MCV 90.9 fL (80.0-100.0); MEAN PLATELET VOLUME 9.8 fL (7.4-10.4); MONOCYTES 9.9 % (2-11); NEUTROPHIL ABS# 5.36 10x3/uL (1.78-5.38); NEUTROPHILS 76.8 % (40-80); PLATELET COUNT 504 10x3/uL (130-400); RBC 3.72 10x6/uL (4.20-6.10); RDW 14.7 % (11.5-14.5)
[2020-12-10 06:23] LABS: ALBUMIN 2.3 g/dL (3.4-5.0); ALKALINE PHOSPHATASE 62 U/L (30-120); ALT (SGPT) 15 U/L (10-68); BILIRUBIN - TOTAL 0.18 mg/dL (0.2-1.3); CALC OSMOLALITY 271 mosm/kg (275-300); CARBON DIOXIDE 30.8 mmol/L (21.0-32.0); CHLORIDE - SERUM 100 mmol/L (98-107); CREATININE - SERUM 0.6 mg/dL (0.6-1.3); GLUCOSE 101 mg/dL (74-106); PROTEIN - SERUM 5.8 g/dL (6.4-8.2); SODIUM 135 mmol/L (136-145); UREA NITROGEN 18 mg/dL (7-18); eGFR NON AFRICAN AMERICAN > 90 mL/min (90-120)
[2020-12-10 07:18] VITALS: BP 138/77
--- NOTE | 2020-12-10 07:20 | NUR ---
LYING IN BED, AWAKE/ALERT/ORIENTED, T/R SELF AD KADE, FC PATENT AND DRAINING DARK YELLOW COLORED FLUID TO CDB IN AMPLE AMT, CATH CARE PROVIDED WITH DAILY BATH AND PRN, CONT OF BOWEL WITH ASSIST TO BSC AD KADE, DENIES PAIN/OTHER DISCOMFORT AT THIS TIME, HAS LARGE STAGE 3 OR 4 PRESSURE ULCER ON COCCIC THAT IS DRESSED WITH MEDIPLEX DRESSING, DRESSING C/D/I, CALL LIGHT/PHONE/WATER WITHIN REACH, NO S/S OF ACUTE DISTRESS OBSERVED.
[2020-12-10 11:38] VITALS: BP 126/66
[2020-12-10] MEDS ORDERED: PREDNISONE10 MG PO (12:02)
--- NOTE | 2020-12-10 13:11 | NUR ---
CALLED KASSIDY QUARLES, NOTIFIED OF RESULTS OF URINE CULTURE BEING E COLI AND ENTEROCOCCUS FAECALIS.
--- NOTE | 2020-12-10 13:46 | NUR ---
Rehab Note- Acute Inpatient REhab prescreen order received. The patient is a good inpatient acute rehab stay, discussed in IDT meeting. Will accept when medically stable and ready for discharge from the acute hospital. Thank you for this referral! Julieta Katz RN Clinical Liaison, [facility] Rehab
--- NOTE | 2020-12-10 14:51 | NUR ---
SPOKE WITH KASSIDY QUARLES PER REQUEST OF REHAB R/T STAGED PRESSURE ULCER ON PT COCCYX, KASSIDY QUARLES STATED SURGERY TOOK "A QUICK LOOK AND SAID NOTHING TO DEBRIDE', he then stated it would be addressed after transfer to rehab.
--- NOTE | 2020-12-10 15:11 | NUR ---
Rehab Note- Upon review of patient's chart noted to have stage 2 to right heel and also Stage 3 to coccyx area. 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 Also stated that the skin on his heel was intact but very "mushy feeling". Asked that she ask JANUARY Ceballos to look at and address wound if possible and ensure no need for surgical consult at this time- stated she would. Spoke with Krystle Re[facility] Nurse Social And Human Services Assistant about concern of wound- stated she would notifty [facility] Nurse Social And Human Services Assistant. Julieta Katz, RN Clinical Liaison, [facility] Rehab
--- NOTE | 2020-12-10 16:12 | MORECARE ---
CASE MANAGEMENT DISCHARGE SUMMARY PATIENT: ERICH RAM UNIT: [id number] ADM DATE: 12/05/20 AGE: 65 : 51 SEX: M ROOM/BED: D.2111 AUTHOR: REILLYDOC PHYSICIAN: REFERRING PHYSICIAN: LUCÍA MAKI MD DATE OF SERVICE: 12/10/20 Discharge Plan Patient Name: ERICH RAM Facility: [facility]:[place] : 1955 Planned Disposition: Inpatient Rehab Anticipated Discharge Date: Discharge Date: Expected LOS: Initial Reviewer: [email or web address] Initial Review Date: 12/05/2020 Generated: 12/10/20 5:12 pm Comments DCP- Discharge Planning Updated by [id number]: Cari Palmer on 12/10/20 3:[address] CM spoke with patient and he will agree to inpatient rehab at [facility]. DOROTHY completed. CM notified Sneha with Rehab. Plan fr patient to discharge today to Rehab. D/C IMM completed. CM will continue to follow. DCP- Discharge Planning Updated by [email or web address]: Desiree Cavanaugh on 12/09/20 3:[address] Patient Name: ERICH RAM Admission Status: ER Accout number: [id number] Admission Date: 12-05-2020 : 1955 Admission Diagnosis:SHORTNESS OF BREATH Attending: LUCÍA JACOB Current LOS: 4 Anticipated DC Date: Planned Disposition: Inpatient Rehab Primary Insurance: MEDICARE A & B Discharge Planning Comments: Spoke with Patient's sister Apple who stated she would like for him to receive inpatient rehab services in [facility]. She stated he was admitted to this facility for 20 days previously. This plan was discussed with Mr. Ram who was in agreement with receiving inpatient rehab services. Apple then called back and stated would like for Mr. Ram to be evaluated for long-term care because his previous caregivers/roommates were moving out of state and would no longer be able to assist with his care. Will discus this discharge plan with patient to obtain his consent. Door Closer Mechanic: Desiree Cavanaugh DCPIA - Discharge Planning Initial Assessment Updated by [id number]: Desiree Cavanaugh on 12/09/20 4:39 pm * Is the patient Alert and Oriented? Yes * How many steps to enter\exit or inside your home? * PCP Dr. Nuno * Pharmacy [facility] * Preadmission Environment Home with Family * ADLs Total Dependent * Equipment Bedside Commode Wheelchair * List name and contact numbers for known caregivers / representatives who currently or will assist patient after discharge: Apple Goodrich Sister ([phone]) * Verbal permission to speak to the caregivers and representatives has been obtained from the patient. Yes * Additional services required to return to the preadmission environment? Yes * Can the patient safely return to the preadmission environment? No * Has this patient been hospitalized within the prior 30 days at any hospital? No Coverage Notice Reviewer: [id number] Andrew Palmer Notice Issued Date-Time: 12/10/2020 11:14 Notice Type: IM Discharge Notice Notice Delivered To: Patient Relationship to Patient: Credit Control Manager Name: Delivery Method: HAND - Hand Delivered Tangela Days: Prior Verbal Notification: Recipient Understood Notice: Yes Recipient Signature: Yes Med Rec Note Co-signed by Attending: Coverage Notice Comment: Reviewer: [id number] Andrew Palmer Notice Issued Date-Time: 12/10/2020 11:14 Notice Type: Patient Choice Letter Notice Delivered To: Patient Relationship to Patient: Self Credit Control Manager Name: Delivery Method: HAND - Hand Delivered Tangela Days: Prior Verbal Notification: Recipient Understood Notice: Yes Recipient Signature: Yes Med Rec Note Co-signed by Attending: Coverage Notice Comment: [facility] INPT REHAB Last DP export: 12/09/20 4:03 p Patient Name: ERICH RAM Page [id number] at 1612 All edits/amendments must be made on the electronic document DICTATION DATE: 12/10/20 1612 ELECTRICAL TECH/PROJECT MANAGER: MARTHA 12/10/20 161 RPT#: [id number] DC DATE: STATUS: ADM IN [facility] [address] [place] [address] END OF REPORT
--- NOTE | 2020-12-10 17:15 | NUR ---
CALLED REPORT TO RADHA BETANCOURT.
--- NOTE | 2020-12-11 11:18 | MORECARE ---
CASE MANAGEMENT DISCHARGE SUMMARY PATIENT: ERICH RAM UNIT: [id number] ADM DATE: 12/05/20 AGE: 65 : 53 SEX: M ROOM/BED: D.2111 AUTHOR: REILLY,DOC PHYSICIAN: REFERRING PHYSICIAN: LUCÍA MAKI MD DATE OF SERVICE: 12/11/20 Discharge Plan Patient Name: ERICH RAM Facility: [facility]:[place] : 1955 Planned Disposition: Inpatient Rehab Anticipated Discharge Date: Discharge Date: 12/10/2020 Expected LOS: Initial Reviewer: [id number] Initial Review Date: 12/05/2020 Generated: 12/11/20 12:18 pm Comments DCP- Discharge Planning Updated by [id number]: Cari Palmer on 12/10/20 3:[address] CM spoke with patient and he will agree to inpatient rehab at [facility]. DOROTHY completed. CM notified Sneha with Rehab. Plan fr patient to discharge today to Rehab. D/C IMM completed. CM will continue to follow. DCP- Discharge Planning Updated by [id number]: Desiree Cavanaugh on 12/09/20 3:[address] Patient Name: ERICH RAM Admission Status: ER Accout number: [id number] Admission Date: 12-05-2020 : 1955 Admission Diagnosis:SHORTNESS OF BREATH Attending: LUCÍA JACOB Current LOS: 4 Anticipated DC Date: Planned Disposition: Inpatient Rehab Primary Insurance: MEDICARE A & B Discharge Planning Comments: Spoke with Patient's sister Apple who stated she would like for him to receive inpatient rehab services in [facility]. She stated he was admitted to this facility for 20 days previously. This plan was discussed with Mr. Ram who was in agreement with receiving inpatient rehab services. Apple then called back and stated would like for Mr. Ram to be evaluated for long-term care because his previous caregivers/roommates were moving out of state and would no longer be able to assist with his care. Will discus this discharge plan with patient to obtain his consent. Line Maintainer: Desiree Cavanaugh DCPIA - Discharge Planning Initial Assessment Updated by [id number]: Desiree Mao on 12/09/20 4:39 pm * Is the patient Alert and Oriented? Yes * How many steps to enter\exit or inside your home? * PCP Dr. Nuno * Pharmacy [facility] * Preadmission Environment Home with Family * ADLs Total Dependent * Equipment Bedside Commode Wheelchair * List name and contact numbers for known caregivers / representatives who currently or will assist patient after discharge: Apple Goodrich Sister ([phone]) * Verbal permission to speak to the caregivers and representatives has been obtained from the patient. Yes * Additional services required to return to the preadmission environment? Yes * Can the patient safely return to the preadmission environment? No * Has this patient been hospitalized within the prior 30 days at any hospital? No Coverage Notice Reviewer: [email or web address] Andrew Palmer Notice Issued Date-Time: 12/10/2020 11:14 Notice Type: IM Discharge Notice Notice Delivered To: Patient Relationship to Patient: Fabrication Operator Name: Delivery Method: HAND - Hand Delivered Tangela Days: Prior Verbal Notification: Recipient Understood Notice: Yes Recipient Signature: Yes Med Rec Note Co-signed by Attending: Coverage Notice Comment: Reviewer: [id number] Andrew Palmer Notice Issued Date-Time: 12/10/2020 11:14 Notice Type: Patient Choice Letter Notice Delivered To: Patient Relationship to Patient: Self Fabrication Operator Name: Delivery Method: HAND - Hand Delivered Tangela Days: Prior Verbal Notification: Recipient Understood Notice: Yes Recipient Signature: Yes Med Rec Note Co-signed by Attending: Coverage Notice Comment: [facility] INPT REHAB Last DP export: 12/10/20 3:12 p Patient Name: ERICH RAM Page [id number] at 1118 All edits/amendments must be made on the electronic document DICTATION DATE: 12/11/20 1118 GRADUATE CIVIL ENGINEER: MARTHA 12/11/20 1118 RPT#: [id number] DC DATE:12/10/20 STATUS: DIS IN [facility] [address] [place] [address] END OF REPORT
== END 2020-12-10 21:20 | DRG 190 ==
LOC: D.ER 13:09 → D.M2 14:42 → D.EDHOLD 14:42 → D.M2 12-07 06:25
PROVIDERS: Emergency Medicine; Family Medicine; ADMIT Family Medicine; ATTEND Family Medicine
PROC: 5A09457 Assistance with Respiratory Ventilation, 24-96 Consecutive Hours, Continuous Positive Airway Pressure (ICD-10-PCS; principal; 2020-12-06)
DX: J47.0 Bronchiectasis with acute lower respiratory infection (principal); J96.21 Acute and chronic respiratory failure with hypoxia; J96.22 Acute and chronic respiratory failure with hypercapnia; E87.1 Hypo-osmolality and hyponatremia; N39.0 Urinary tract infection, site not specified; I50.22 Chronic systolic (congestive) heart failure; J18.9 Pneumonia, unspecified organism; J20.9 Acute bronchitis, unspecified; D50.9 Iron deficiency anemia, unspecified; I25.10 Atherosclerotic heart disease of native coronary artery without angina pectoris; I73.9 Peripheral vascular disease, unspecified; Z89.612 Acquired absence of left leg above knee; K75.9 Inflammatory liver disease, unspecified; J43.9 Emphysema, unspecified

== ENCOUNTER 2020-12-10 17:35 | Inpatient (IN) | payer MEDICARE ==
[~2020-12-10] VITALS: Ht 165.1 cm; Wt 63.5 kg
[~2020-12-10 17:35] MED LIST changes: +PREDNISONE10 MG PO
--- NOTE | 2020-12-10 21:00 | NUR ---
ADMIT FOR PHYSICAL REHAB AND SERVICES OF DR RENTERIA. AWAKE AND ALERT. SOME CONFUSION TO DATE TIME AND PLACE. LEFT AKA (HEALED). SONG IN PLACE. UNSTAGEABLE WOUND TO COCCYX. PATIENT STATES HE GOT IT WHEN HE WAS IN HOSPITAL FOR HIS AMPUTATION AND IT NEVER HEALED. NO CURRENT DISTRESS NOTED. CALL LIGHT IN REACH.
--- NOTE | 2020-12-10 21:00 | NUR ---
PT TRANSFERRED TO REHAB AT THIS TIME VIA WHEELCHAIR.
[2020-12-10 22:31] VITALS: BP 135/77; BMI 23.3
[2020-12-11 00:29] LABS: BILIRUBIN NEGATIVE (NEGATIVE); KETONE NEGATIVE (NEGATIVE); NITRITE NEGATIVE (NEGATIVE); UROBILINOGEN NORMAL mg/dL (< 2)
--- NOTE | 2020-12-11 02:05 | NUR ---
SLEEPING WITH NO DISTRESS NOTED.
--- NOTE | 2020-12-11 06:11 | NUR ---
QUIET HOURS. NO ACUTE CHANGES IN CONDITION THIS SHIFT. RIGHT ARM SALINE LOCK INTACT. SONG PATENT. NO DISTRESS NOTED.
[2020-12-11 06:30] LABS: CALC OSMOLALITY 270 mosm/kg (275-300); CALCIUM 8.3 mg/dL (8.5-10.1); CARBON DIOXIDE 32.5 mmol/L (21.0-32.0); CHLORIDE - SERUM 99 mmol/L (98-107); GLUCOSE 105 mg/dL (74-106); POTASSIUM - SERUM 4.1 mmol/L (3.5-5.1); SODIUM 135 mmol/L (136-145); UREA NITROGEN 15 mg/dL (7-18)
[2020-12-11 06:39] LABS: CREATININE - SERUM 0.4 mg/dL (0.6-1.3); eGFR NON AFRICAN AMERICAN > 90 mL/min (90-120)
[2020-12-11 07:56] LABS: BASOPHILS 0 % (0-2); EOSINOPHILS 0 % (0-7); HEMATOCRIT 35.2 % (42.0-54.0); HEMOGLOBIN 11.6 g/dL (13.5-17.5); IMMATURE GRANULOCYTES 0.2 % (0-5); LYMPHOCYTE ABS# 0.87 10x3/uL (1.32-3.57); LYMPHOCYTES 14.5 % (15-50); MCH 29.5 pg (26.0-34.0); MCV 89.6 fL (80.0-100.0); MONOCYTES 8.3 % (2-11); NEUTROPHIL ABS# 4.62 10x3/uL (1.78-5.38); PLATELET COUNT 495 10x3/uL (130-400); RBC 3.93 10x6/uL (4.20-6.10); RDW 14.9 % (11.5-14.5)
[2020-12-11 08:03] VITALS: BP 146/83
--- NOTE | 2020-12-11 09:52 | NUR ---
PATIENT ADMITTED TO REHAB FROM ACUTE FLOOR.HIS PCP IS DR. CEBALLOS, DME AT HOME IS A BEDSIDE COMMODE AND A WHEELCHAIR. WILL CONTINUE TO FOLLOW WITH PATIENT AND WILL ASSIST WITH DC NEEDS.
--- NOTE | 2020-12-11 10:10 | NUR ---
MAX ASST TO TRANSFER FROM BED TO TO TOILET. IS A LEFT AKA. F/C PATENT WITH CLOUDY URINE. IS SOB WITH EXERTION. DECLINED OXYGEN. DSG TO COCCYX STILL HAS MEPILEX IN PLACE. HE IS COOOPERATIVE.
--- NOTE | 2020-12-11 12:26 | NUR ---
SPOKE WITH PATIENTS SISTER , JEWELS CALVILLO AND SHE IS MAKING ARRANGEMENTS FOR PATIENT TO DISCHARGE TO [facility] AT TIME OF DISCHARGE FROM REHAB. SHE IS TO CALL BACK WITH THEY HAVE ACCEPTED HIM. SHE STATES THAT HE HAS NO HOME TO RETURN TO. WILL CONTINUE TO FOLLOW WITH PATIENT.
[2020-12-11 16:04] VITALS: Ht 165.1 cm; Wt 63.5 kg
--- NOTE | 2020-12-11 17:53 | NUR ---
DSG DONE TO COCCYX/LEFT BUTTOCK CHEEK AREA WITH DAKINS 1/4 STRENGTH. WOUND WAS WASHED WITH WOUND QUALITY ASSURANCE PRACTICE MANAGER AND PATTED DRY. HE WOUND IS TEAR DROP SHAPED WITH WHITE, NON BLANCHABLE SKIN INSIDE THE "TEAR DROP". AT LARGE END OF "TEAR DROP" IS AN CIRCULAR, OPEN WOUND WITH FROST, FOUL SMELLING STRINGY LOOKING FIBERS IN THE MIDDLE OF THE NIKOLAI. CIRCULAR WOUND APPEARS TO BE TURNING LOOSE AT THE EDGES. MODERATE AMOUNT OF LIGHT PINK DRAINAGE NOTED TO PREVIOUS DSG. DAKINS SOAKED 2X2 USED TO PACK WOUND AND COVERED WITH DRY 4X4 AND BORDER DSG. WOUND MEASUREMENTS: LEFT BUTTOCK "TEAR DROP" SHAPPED WOUND = 7.5 X 4 CM CIRCULAR OPEN WOUND INSIDE "TEAR DROP" = 2.5 X 3 CM SECOND, SMALL OPEN STAGE 2 ABOVE "TEAR DROP" = 1.0 X 0.5 CM RIGHT HEEL HAS SCABBED, NON STAGEABLE WOUND. DRY DSG AND DUODERM APPLIED TO PROTECT WOUND AND LET HEAL FROM BOTTOM TO TOP. RIGHT HEEL MEAUREMENTS = 4 X 3 CM STRONGLY ENCOURAGED PT TO LAY ON SIDES, ROTATE OFTEN, EAT PROTEINS FIRST AT MEALTIMES, AND KEEP HEEL ON PILLOW WHEN POSSIBLE. HE STATED UNDERSTANDING TO INSTRUCTIONS.
--- NOTE | 2020-12-11 19:45 | NUR ---
RECEIVED PT LYING IN BED AWAKE. ALERT AND ORIENTED X4. LEFT AKA WITH HEALING INCISION. RIGHT FOREARM IV PATENT. DRESSING AND SWAB CAPS INTACT. RIGHT HEEL DRESSING INTACT. HEEL BRIDGED. NICOTINE PATCH TO LEFT SHOULDER. SONG CATH PATENT FREE FROM KINKS. SONG CATH CARE PROVIDED. DENIES ANY PAIN. NON COMPLIANT WITH OXYGEN. O2 SAT 94% RA. CALL LIGHT WITHIN REACH. FALL PRECAUTIONS IN PLACE. CPOC
[2020-12-11 21:10] VITALS: BP 104/65
--- NOTE | 2020-12-11 21:20 | NUR ---
RIGHT FOREARM IV INFILTRATED. STOPPED ABX. DC RIGHT FOREARM IV WITH CATH TIP INTACT. ATTEMPTED LEFT WRIST IV WITHOUT SUCCESS. [place] STARTED LEFT FOREARM 20G X1 ATTEMPT. DRESSING INTACT. PT TOLERATED WELL
--- NOTE | 2020-12-12 02:08 | NUR ---
PT LYING IN BED EYES CLOSED RESTING. RR EVEN AND UNLABORED. CALL LIGHT WITHIN REACH. CPOC
--- NOTE | 2020-12-12 04:48 | NUR ---
PT LYING IN BED REPOSITIONED TO HEAD OF BED. PILLOW PLACED UNDER LEFT AKA. SONG EMPTIED 1000ML YELLOW URINE. NO DISTRESS NOTED. CALL LIGHT AND WATER WITHIN REACH. FALL PRECAUTIONS IN PLACE. CPOC
[2020-12-12 08:30] VITALS: BP 120/67
--- NOTE | 2020-12-12 09:30 | NUR ---
THE CARMEN ROD ASKED ME TO COME IN TO ASSESS PT. SHE ASSISTED HIM TO THE WHEELCHAIR AND HE BECOME AGITATED. HE WAS SAYING THAT HE IS NOT DISABLED AND THAT HE CAN DO FOR HIMSELF AND DOES NOT NEED HELP. HE THEN SAID HIS BUTTOCKS WAS HURTING AND HE WANTED TO GO BACK TO BED AND HAVE HIS WOUND TENDED TO. HE REPORTS HIS PAIN LEVEL 10/10 TO HIS BUTTOCKS. OFFERED PAIN MEDICATION AND HE SAID HE WANTED THE DRESSING CHANGED THEN GIVEN THE PAIN MEDS. DRESSING WAS CHANGED ORDERED AND NORCO GIVEN ORDERED. NEXT, GAVE HIM HIS MORNING MEDS. HE BECAME AGITATED WHEN I HANDED HIM THE CUP OF PILLS, STATED YOU CAN PUT THEM ON MY TABLE AND I WILL GET THEM OFF THE TABLE. HE BEGAN EXPRESSING CONCERN THAT EVERYONE WANTS TO HELP HIM AND HE DOESNT NEED HELP. TRIED TO REASSURE HIM THAT WE ENCOURAGE HIM TO DO MUCH POSSIBLE AND THAT WE ARE ONLY TRYING TO HELP. SUGGESTED THAT WE KEEP HIM OFF HIS BUTTOCKS MUCH POSSIBLE, OFFERED TO HELP HIM TURN TO ONE OF HIS SIDES AND HE STATES THAT DOES NOT HELP. AGAIN, ENCOURAGED HIM TO TURN OR LET US ASSIST HIM TO TURN EVERY 2 HOURS TO HELP WITH THE PAIN AND DECREASE FURTHER BREAKDOWN. HE FINALLY SAID OKAY AND LET ME ASSIST HIM TO HIS LEFT SIDE. PLACED A PILLOW UNDER HIS RIGHT HIP. HE ASKED FOR A CIGARETTE. EXPLAINED TO HIM HE IS NOT ALLOWED TO SMOKE IN THIS FACILITY AND REMINDED HIM ABOUT THE NICOTINE PATCH I PLACED ON HIS RIGHT UPPER ARM. REMOVED YESTERDAYS PATCH FROM HIS LEFT SHOULDER. HE VERBALIZED UNDERSTANDING. SPOKE TO DR. RENTERIA REGARDING THE URINE CULTURE RESULTS. VIBRAMYCIN/MAXIPIME D/C'D AND ZYVOX ORDERED. PT DENIES FURTHER NEEDS. BED IS LOW, BED ALARM ON AND CALL LIGHT WITHIN REACH. WILL CONTINUE TO MONITOR.
--- NOTE | 2020-12-12 19:20 | NUR ---
RECEIVED PT LYING IN BED AWAKE. ALERT AND ORIENTED X3. DENIES ANY NEEDS. C/O 01/23 LEFT STUMP DISCOMFORT. PT RECEIVED NORCO 5/325MG APPROXIMATLY 2 HOURS AGO PER EMAR. LEFT FOREARM IV PATENT. NO REDNESS OR TENDERNESS. DRESSING AND SWAB CAPS INTACT. CURRENTLY ON ROOM AIR O2 SAT 96%. NO DISTRESS NOTED. SONG PATENT AND FREE FROM KINKS. SONG CATH CARE PROVIDED. CALL LIGHT AND WATER WITHIN REACH. FALL PRECAUTIONS IN PLACE. CPOC
[2020-12-12 21:37] VITALS: BP 124/76
--- NOTE | 2020-12-12 23:19 | NUR ---
PT LYING IN BED EYES CLOSED RESTING. REPOSITIONED TO RIGHT SIDE USING PILLOW FOR SUPPORT. DENIES ANY NEEDS. ZYVOX COMPLETE. LEFT FOREARM IV FLUSHED NS SWAB CAP APPLIED. NO DISTRESS NOTED. CALL LIGHT WITHIN REACH. CPOC
--- NOTE | 2020-12-13 01:45 | NUR ---
PT LYING IN BED EYES CLOSED RESTING. REPOSITIONED PT TO LEFT SIDE USING PILLOW FOR SUPPORT. CALL LIGHT WITHIN REACH. CPOC
--- NOTE | 2020-12-13 04:10 | NUR ---
PT LYING IN BED SUPINE, REPOSITIONED PT TO HEAD OF BED, PROPPED LEFT HIP WITH PILLOW FOR PRESSURE RELIEF. DENIES ANY OTHER NEEDS OR PAIN. NO DISTRESS NOTED. CALL LIGHT AND WATER WITHIN REACH. FALL PRECAUTIONS IN PLACE. CPOC
[2020-12-13 09:35] VITALS: BP 115/67
--- NOTE | 2020-12-13 10:30 | NUR ---
PT C/O OF BILATERAL LEGS FEELING SORE AND LEFT STUMP INCISION IS ITCHING. HE IS REQUESTING BENADRYL. HE STATES THIS HAS HELPED IN THE PAST. ORDER FOR BENADRYL RECEIVED AND GIVEN. INCISION TO STUMP IS HEALED AND THERE IS NO REDNESS, SWELLING OR DRAINAGE. HE DENIES FURTHER NEEDS. BED LOW, FELIX ALARM ON AND CALL LIGHT WITHIN REACH.
--- NOTE | 2020-12-13 18:52 | NUR ---
RECEIVED PT LYING IN BED VISITING WITH BROTHER. MASK COMPLIANCE NOTED BY VISITOR. PT IS ALERT AND ORIENTED X3. REORIENTED TO SITUATION. DENIES ANY NEED OR PAIN. NO DISTRESS NOTED. CALL LIGHT AND WATER WITHIN REACH. FALL PRECAUTIONS IN PLACE. CPOC
--- NOTE | 2020-12-13 19:00 | NUR ---
RECEIVED PT LYING IN BED AWAKE. ALERT AND ORIENTED X4. C/O BUTTOCKS AND LEFT STUMP 3/10 DISCOMFORT. LEFT FOREARM IV SALINE LOCKED. NO REDNESS OR TENDERNESS NOTED. DRESSING AND SWAB CAP INTACT. RIGHT HEEL DRESSING INTACT HEEL BRIDGED. REPOSITIONED TO RIGHT SIDE USING PILLOWS TO RELIEF BUTTOCK PRESSURE. BUTTOCK DRESSING INTACT CHANGED TODAY BY RADHA KEARNEY. NO DISTRESS NOTED. SONG CATH PATENT AND FREE FROM KINKS. SONG CATH CARE PROVIDED USING CATH CARE WIPES. CALL LIGHT AND PERSONAL ITEMS WITHIN REACH. FALL PRECAUTIONS IN PLACE. CPOC
--- NOTE | 2020-12-13 19:35 | NUR ---
PT CALLED REQUESTING BEDPAN. OFFERED PT BSC, PT STATED HE DID NOT FEEL COMFORTABLE SITTING ON BSC OR TOILET, STATES "I FEEL LIKE I'M GOING TO FALL OFF" REASSURED PT HE WOULD BE SAFE, PT STILL REFUSED. PLACED PT ON BEDPAN. INSTRUCTED PT TO CALL WHEN FINISHED. PT VERBALIZED UNDERSTANDING.
--- NOTE | 2020-12-13 19:50 | NUR ---
ASSISTED PT OFF BEDPAN. SUCCESSFUL LARGE FORMED BM. TOILETING HYGIENE PERFORMED. BUTTOCK DRESSING CLEAN AND INTACT. POSITIONED PT ON RIGHT SIDE USING PILLOWS. RIGHT HEEL BRIDGED. DENIES ANY OTHER NEEDS. CALL LIGHT WITHIN REACH
[2020-12-13 20:07] VITALS: BP 126/80
--- NOTE | 2020-12-13 23:22 | NUR ---
PT LYING IN BED ON RIGHT SIDE EYES CLOSED RESTING. REPOSITIONED PT TO LEFT SIDE USING PILLOW. NO DISTRESS NOTED. CALL LIGHT WITHIN REACH. CPOC
--- NOTE | 2020-12-14 03:04 | NUR ---
PT LYING IN BED ON LEFT SIDE EYES CLOSED RESTING. NO DISTRESS NOTED. RR EVEN AND UNLABORED. CALL LIGHT WITHIN REACH
--- NOTE | 2020-12-14 04:58 | NUR ---
PT LYING IN BED SUPINE AWAKE WATCHING TV. DENIES ANY NEEDS OR PAIN. NO DISTRESS NOTED. EMPTIED SONG 1100ML CLEAR YELLOW URINE. REPOSITIONED PT TO RIGHT SIDE USING PILLOW FOR SUPPORT. CALL LIGHT AND WATER WITHIN REACH. FALL PRECAUTIONS IN PLACE. CPOC
[2020-12-14 07:46] VITALS: BP 141/79
--- NOTE | 2020-12-14 07:57 | NUR ---
SITTING UP IN BED.BREAKKFAST GIVEN.DRSG TO BUTTOCKS AND RIGHT HEEL INTACT.ON RA 96% SAT.
[2020-12-14 11:05] LABS: BASOPHILS 0 % (0-2); EOSINOPHILS 4.8 % (0-7); HEMATOCRIT 35.7 % (42.0-54.0); HEMOGLOBIN 11.6 g/dL (13.5-17.5); IMMATURE GRANULOCYTES 0.4 % (0-5); LYMPHOCYTE ABS# 1.38 10x3/uL (1.32-3.57); MCH 29.1 pg (26.0-34.0); MCHC 32.5 g/dL (31.0-37.0); MCV 89.5 fL (80.0-100.0); MEAN PLATELET VOLUME 9.5 fL (7.4-10.4); MONOCYTES 11.8 % (2-11); NEUTROPHIL ABS# 6.82 10x3/uL (1.78-5.38); PLATELET COUNT 488 10x3/uL (130-400); RBC 3.99 10x6/uL (4.20-6.10); RDW 15.1 % (11.5-14.5); WBC 9.9 10x3/uL (4.8-10.8)
[2020-12-14 11:17] LABS: CALC OSMOLALITY 262 mosm/kg (275-300); CARBON DIOXIDE 30.1 mmol/L (21.0-32.0); CHLORIDE - SERUM 98 mmol/L (98-107); CREATININE - SERUM 0.4 mg/dL (0.6-1.3); GLUCOSE 113 mg/dL (74-106); POTASSIUM - SERUM 4.2 mmol/L (3.5-5.1); SODIUM 131 mmol/L (136-145); UREA NITROGEN 11 mg/dL (7-18); eGFR NON AFRICAN AMERICAN > 90 mL/min (90-120)
--- NOTE | 2020-12-14 12:00 | NUR ---
ASSISTED TO SIDE OF BED.EATING LUNCH.
--- NOTE | 2020-12-14 13:11 | NUR ---
PT REFUSING THERAPY WITH OT.PT DID NOT WANT THERAPY WITH PT THIS AM BUT HE DID GET UP AND PARTICIPATED.
--- NOTE | 2020-12-14 19:22 | NUR ---
AWAKE AND ALERT. RESTING IN BED WITH RESPIRATIONS UNLABORED AT REST. SONG PATENT. LEFT FOREARM SALINE LOCK INTACT WITH NO SIGNS OF INFILTRATION. CALL LIGHT IN REACH.
[2020-12-14 20:05] VITALS: BP 116/84
--- NOTE | 2020-12-15 01:22 | NUR ---
RESTING IN BED WITH RESPIRATIONS UNLABORED. NO DISTRESS NOTED.
--- NOTE | 2020-12-15 05:23 | NUR ---
QUIET HOURS. NO ACUTE CHANGES IN CONDITION THIS SHIFT. RESTING IN BED WITH NO DISTRESS NOTED. NOHEMI PATENT. CALL LIGHT IN REACH.
[2020-12-15 08:00] VITALS: BP 140/75
--- NOTE | 2020-12-15 08:00 | NUR ---
SHIFT ASSMT COMPLETED.CL IN REACH.DRSG TO LEFT HEEL INTACT AND DRSG TO BUTTOCK INTACT.
--- NOTE | 2020-12-15 14:37 | NUR ---
Nutrition Re-assessment Diet: Cardiac + Otoniel BID PO intake: 90-100% x last 3 meals Last BM: 12/14/20 Wt: 140# (12/11/20) Meds reviewed. Labs noted: Na 131(L), Glu 113(H) Skin: PU x 4: R heel, L buttocks, buttocks, and coccyx Estimated nutrition needs and nutrition diagnosis remain unchanged at this time. Goal progressing. Recommendations/Interventions: -Recommend continue current diet and oral nutrition supplement for nutritionally aided wound healing. -Will continue to honor food preferences within diet restrictions. -RD will continue to monitor PO intake and wt trend. -RD will follow-up within 7 days.
[2020-12-15 19:20] VITALS: BP 135/74
--- NOTE | 2020-12-15 19:41 | NUR ---
AWAKE AND ALERT. RESTING IN BED WITH RESPIRATIONS UNLABORED. SONG PATENT. LEFT FOREARM SALINE LOCK INTACT WITH NO SIGNS OF INFILTRATION. DRESSINGS TO BUTTOCKS/COCCYX DRY AND INTACT. RIGHT HEEL DRESSING DRY AND INTACT. REMAINS IN CONTACT ISOLATION RELATED TO ESBL OF URINE. CALL LIGHT IN REACH.
--- NOTE | 2020-12-16 04:59 | NUR ---
QUIET HOURS. NO ACUTE CHANGES IN CONDITION THIS SHIFT. SONG PATENT. NO DISTRESS NOTED. CALL LIGHT IN REACH.
[2020-12-16 06:38] LABS: BASOPHILS 0.1 % (0-2); EOSINOPHILS 3.3 % (0-7); HEMATOCRIT 35.4 % (42.0-54.0); HEMOGLOBIN 11.3 g/dL (13.5-17.5); IMMATURE GRANULOCYTES 0.5 % (0-5); LYMPHOCYTE ABS# 1.95 10x3/uL (1.32-3.57); LYMPHOCYTES 22.5 % (15-50); MCH 28.8 pg (26.0-34.0); MCHC 31.9 g/dL (31.0-37.0); MCV 90.3 fL (80.0-100.0); MEAN PLATELET VOLUME 9.7 fL (7.4-10.4); MONOCYTES 11.2 % (2-11); NEUTROPHIL ABS# 5.41 10x3/uL (1.78-5.38); NEUTROPHILS 62.4 % (40-80); PLATELET COUNT 466 10x3/uL (130-400); RBC 3.92 10x6/uL (4.20-6.10); RDW 15.3 % (11.5-14.5); WBC 8.7 10x3/uL (4.8-10.8)
[2020-12-16 06:44] LABS: CALC OSMOLALITY 264 mosm/kg (275-300); CALCIUM 8.1 mg/dL (8.5-10.1); CARBON DIOXIDE 30.9 mmol/L (21.0-32.0); CHLORIDE - SERUM 100 mmol/L (98-107); CREATININE - SERUM 0.4 mg/dL (0.6-1.3); GLUCOSE 87 mg/dL (74-106); POTASSIUM - SERUM 4.2 mmol/L (3.5-5.1); SODIUM 134 mmol/L (136-145); eGFR NON AFRICAN AMERICAN > 90 mL/min (90-120)
[2020-12-16 06:48] LABS: UREA NITROGEN 8 mg/dL (7-18)
[2020-12-16 07:27] VITALS: BP 131/84
--- NOTE | 2020-12-16 13:39 | NUR ---
WORKING WITH THERAPY AT PRESENT. WAS VERY RELUCTANT TO GET OUT OF BED AND DO THERAPY TIME. HE STATED "THIS IS GETTING OUT OF HAND" WHEN THERAPY TRIED TO TO EXPLAIN WHY HE NEEDED THERAPY DAILY......
--- NOTE | 2020-12-16 15:16 | NUR ---
DSG CHANGED ON COCCYX AREA. WOUND BED IN CIRCULAR AREA OF SKIN INJURY HAS BETTER LOOKING WOUND BED THAN BEFORE DAKINS WAS STARTED. THERE WAS MODERATE AMT OF DRAINAGE ON PREVIOUS DSG WHICH LOOKED GREENISH IN COLOR. REST OF WOUND HAS NO S/S INFECTION. CALL LIGHT IN REACH
--- NOTE | 2020-12-16 18:55 | NUR ---
RECEIVED PT LYING IN BED. ALERT AND ORIENTED X4. C/O BUTTOCKS 3/10 ACHING BURN DISCOMFORT. REPOSITIONED TO LEFT USING PILLOW. NO DISTRESS NOTED. DENIES ANY NEEDS. RIGHT HEEL DRESSING INTACT. HEEL BRIDGED. CALL LIGHT WITHIN REACH. FALL PRECAUTIONS IN PLACE. CPOC
[2020-12-16 20:29] VITALS: BP 130/80
--- NOTE | 2020-12-17 01:31 | NUR ---
PT LYING IN BED SUPINE EYES CLOSED RESTING. REPOSITIONED TO RIGHT SIDE USING PILLOW. NO DISTRESS NOTED. CALL LIGHT WITHIN REACH. CPOC
--- NOTE | 2020-12-17 05:15 | NUR ---
PT LYING IN BED SUPINE EYES CLOSED RESTING. SONG EMPTIED 400ML YELLOW URINE. NO DISTRESS NOTED. CALL LIGHT WITHIN REACH. CPOC
[2020-12-17 08:06] VITALS: BP 129/80
--- NOTE | 2020-12-17 12:48 | NUR ---
LAYING IN BED WATCHING TV. PAIN MEDS GIVEN TO PT ORDERED AND REQUESTED. ENCOURAGED HIM AGAIN TO ROLL ON SIDE AND NOT LAY ON COCCYX AREA BUT HE CONSISTANTLY REFUSES TO DO THIS. F/C DRAINING CLOUDY URINE. CALL LIGHT IN REACH
--- NOTE | 2020-12-17 15:19 | NUR ---
CARE TEAM MEETING: PATIENT IS PROGRESSING IN THERPY. HIS TENATIVE DC DATE IS 12/25/20. REFERRAL WILL BE FAXED TO [facility] FOR [facility] AT DC FROM REHAB. WILL CONTINUE TO FOLLOW WITH PATIENT.
--- NOTE | 2020-12-17 18:55 | NUR ---
RECEIVED PT LYING IN BED AWAKE. ALERT AND ORIENTED X4. C/O BUTTOCK DEEP BURNING DISCOMFORT 01/23. LEFT FOREARM IV PATENT. NO REDNESS NOTED. DRESSING AND SWAB CAP INTACT. BUTTOCK AND HEEL DRESSINGS CHANGED TODAY BY SAMMI RN AND INTACT. RIGHT HEEL BRIDGED. NICOTINE PATCH ON RIGHT SHOULDER. SONG CATH PATENT FREE FROM KINKS. CALL LIGHT AND WATER WITHIN REACH. FALL PRECAUTIONS IN PLACE. CPOC
[2020-12-17 20:28] VITALS: BP 117/72
--- NOTE | 2020-12-18 02:21 | NUR ---
PT LYING IN BED ON LEFT SIDE EYES CLOSED RESTING. REPOSITIONED TO RIGHT SIDE. NO DISTRESS NOTED. CALL LIGHT WITHIN REACH. CPOC
[2020-12-18 08:00] VITALS: BP 121/76
[2020-12-18 08:15] LABS: BASOPHILS 0.3 % (0-2); EOSINOPHILS 3.7 % (0-7); HEMATOCRIT 36.3 % (42.0-54.0); HEMOGLOBIN 11.8 g/dL (13.5-17.5); IMMATURE GRANULOCYTES 0.3 % (0-5); LYMPHOCYTE ABS# 1.59 10x3/uL (1.32-3.57); MCH 29.3 pg (26.0-34.0); MCHC 32.5 g/dL (31.0-37.0); MCV 90.1 fL (80.0-100.0); MEAN PLATELET VOLUME 9.6 fL (7.4-10.4); NEUTROPHIL ABS# 4.46 10x3/uL (1.78-5.38); NEUTROPHILS 58.7 % (40-80); PLATELET COUNT 422 10x3/uL (130-400); RBC 4.03 10x6/uL (4.20-6.10); RDW 15.4 % (11.5-14.5); WBC 7.6 10x3/uL (4.8-10.8)
[2020-12-18 08:33] LABS: CALC OSMOLALITY 265 mosm/kg (275-300); CALCIUM 8.6 mg/dL (8.5-10.1); CARBON DIOXIDE 34.1 mmol/L (21.0-32.0); CHLORIDE - SERUM 99 mmol/L (98-107); CREATININE - SERUM 0.4 mg/dL (0.6-1.3); GLUCOSE 79 mg/dL (74-106); POTASSIUM - SERUM 4.7 mmol/L (3.5-5.1); SODIUM 134 mmol/L (136-145); UREA NITROGEN 10 mg/dL (7-18); eGFR NON AFRICAN AMERICAN > 90 mL/min (90-120)
--- NOTE | 2020-12-18 16:00 | NUR ---
LAYING ON BACK IN HIS BED IN HIS ROOM WATCHING TV. ENCOURAGED HIM AGAIN TO LAY ON SIDE AND RELIEVE PRESSURE TO COCCYX. HE SAID HE COULD NOT GET COMFORTABLE IF HE LAYED ON HIS SIDE SO HE WOULD STAY PUT HE WAS. ENCOURAGED HIME TO ROTATE JUST 30 DEGREES AND THAT WOULD HELP. HE IGNORED MY COMMENT. CALL LIGHT IN REACH.
--- NOTE | 2020-12-18 19:16 | NUR ---
AWAKE AND ALERT. RESTING IN BED WATHCING TV. RESPIRAITONS UNLABORED. LEFT ARM SALINE LOCK INTACT WITH NO SIGNS OF INFILTRATION. SONG PATENT. CALL LIGHT IN REACH.
[2020-12-18 19:36] VITALS: BP 109/76
--- NOTE | 2020-12-19 01:16 | NUR ---
SLEEPING WITH RESPIRATIONS UNLABORED. NO DISTRESS NOTED.
--- NOTE | 2020-12-19 05:15 | NUR ---
QUIET HOURS. NO ACUTE CHANGES IN CONDITION THIS SHIFT. RESTING IN BED WITH NO DISTRESS NOTED. IV SITE PATENT. SONG IN PLACE.
--- NOTE | 2020-12-19 08:00 | NUR ---
SHIFT ASSMT COMPLETED.BREAKFAST GIVEN.PLACED RT HEEL UP ON PILLOW TO FLOAT HEEL.REFUSES TO TURN OFF BUTTOCKS.
[2020-12-19 10:21] VITALS: BP 116/68
--- NOTE | 2020-12-19 12:00 | NUR ---
SITTING UP SIDE OF BED.LUNCH GIVEN.
[2020-12-19 19:00] VITALS: BP 137/77
--- NOTE | 2020-12-19 19:44 | NUR ---
AWAKE AND ALERT. RESITNG IN BED WITH RESPIRATIONS UNLABORED. SALINE LOCK INTACT TO LEFT FOREARM WITH SLIGHT REDNESS BUT FLUSHES. SONG PATENT. DRESSING INTACT TO BUTTOCK AREA AND RIGHT HEEL. NO DISTRESS NOTED.
--- NOTE | 2020-12-20 05:07 | NUR ---
QUIET HOURS. NO ACUTE CHANGES IN CONDITION THIS SHIFT. RESPIRATIONS UNLABORED. NO DISTRESS NOTED.
--- NOTE | 2020-12-20 08:00 | NUR ---
SHIFT ASSMT COMPLETED.CL IN REACH.SITTING ON SIDE OF BED FOR BREAKFAST.
--- NOTE | 2020-12-20 12:00 | NUR ---
SITTING UP FOR LUNCH.
[2020-12-20 15:31] VITALS: BP 135/85
[2020-12-20 19:00] VITALS: BP 136/82
--- NOTE | 2020-12-20 19:32 | NUR ---
AWAKE AND ALERT. RESTING IN BED WATCHING TV. RESPIRAITONS UNLABORED. SALINE LOCK INTACT TO LEFT FOREARM. SONG PATENT. CONTACT ISOLATION IN PLACE.
--- NOTE | 2020-12-21 00:31 | NUR ---
RESTING QUIETLY IN BED WITH NO DISTRESS NOTED.
--- NOTE | 2020-12-21 04:57 | NUR ---
QUIET HOURS. NO ACUTE CHANGES IN CONDITION THIS SHIFT. RESTING IN BED WITH NO DISTRESS NOTED. LEFT FOREARM SALINE LOCK INTACT. SONG PATENT.
[2020-12-21 07:51] VITALS: BP 124/81
[2020-12-21 09:05] LABS: CALC OSMOLALITY 264 mosm/kg (275-300); CALCIUM 8.5 mg/dL (8.5-10.1); CARBON DIOXIDE 31.6 mmol/L (21.0-32.0); CHLORIDE - SERUM 96 mmol/L (98-107); CREATININE - SERUM 0.6 mg/dL (0.6-1.3); POTASSIUM - SERUM 4.1 mmol/L (3.5-5.1); SODIUM 132 mmol/L (136-145); UREA NITROGEN 10 mg/dL (7-18); eGFR NON AFRICAN AMERICAN > 90 mL/min (90-120)
[2020-12-21 09:06] LABS: GLUCOSE 123 mg/dL (74-106)
[2020-12-21 09:18] LABS: BASOPHILS 0.3 % (0-2); EOSINOPHILS 3.6 % (0-7); HEMATOCRIT 37.3 % (42.0-54.0); IMMATURE GRANULOCYTES 0.1 % (0-5); LYMPHOCYTES 19.7 % (15-50); MCH 28.8 pg (26.0-34.0); MCHC 32.2 g/dL (31.0-37.0); MCV 89.7 fL (80.0-100.0); MEAN PLATELET VOLUME 9.4 fL (7.4-10.4); MONOCYTES 5.4 % (2-11); NEUTROPHIL ABS# 6.13 10x3/uL (1.78-5.38); NEUTROPHILS 70.9 % (40-80); RBC 4.16 10x6/uL (4.20-6.10); RDW 15.2 % (11.5-14.5); WBC 8.7 10x3/uL (4.8-10.8)
[2020-12-21 09:19] LABS: PLATELET COUNT 336 10x3/uL (130-400)
--- NOTE | 2020-12-21 18:49 | NUR ---
RECEIVED PT LYING IN BED SUPINE AWAKE. HOB ELEVATED. ALERT AND ORIENTED X4. C/O LLE AND BUTTOCK 3/10 DISCOMFORT. DENIES ANY OTHER NEEDS OR PAIN. CALL LIGHT AND WATER WITHIN REACH. FALL PRECAUTIONS IN PLACE. CPOC
[2020-12-21 20:16] VITALS: BP 128/76
--- NOTE | 2020-12-21 23:15 | NUR ---
PT LYING IN BED SUPINE AWAKE. DR. YOUNG AT BEDSIDE ASSESSING PT RIGHT HEEL WOUND. NO DISTRESS NOTED. CPOC
--- NOTE | 2020-12-22 03:38 | NUR ---
PT LYING IN BED SUPINE EYES CLOSED RESTING. REPOSITIONED TO LEFT SIDE. NO DISTRESS NOTED. CALL LIGHT WITHIN REACH. CPOC
--- NOTE | 2020-12-22 05:45 | NUR ---
PT REFUSED DRESSING CHANGE TO BUTTOCKS. WILL ATTEMPT AGAIN AFTER 0600
--- NOTE | 2020-12-22 06:32 | NUR ---
PT REFUSED BUTTOCK/COCCYX DRESSING CHANGE FOR 2ND ATTEMPT. PT STATED HE DID NOT FEEL LIKE DEALING WITH DRESSING THIS EARLY IN AM.
[2020-12-22 08:06] VITALS: BP 107/72
--- NOTE | 2020-12-22 09:59 | NUR ---
LAYING DOWN IN BED WATCHING TV. PAIN MEDS GIVEN WHEN REQUESTED THIS MORNING. C/O PAIN TO COCCYX AREA WHERE SKIN IS BROKEN. REMINDED AND ENCOURAGED PT AGAIN TO ROLL OFF SACRAL AREA AND RELIEVE PRESSURE AREA. HE DECLINED TO DO THAT STATING HE IS NOT COMFORTABLE LAYING ON SIDES.....CALL LIGHT IN REACH. HEAD OF BED ELEVATED APPX 45 DEGREES. SIDE RAILS UP X2. BED IN LOWEST POSITION.
--- NOTE | 2020-12-22 14:44 | NUR ---
Nutrition Re-Assessment Diet: Cardiac + Otoniel BID PO intake: 100% Last BM: 12/20/20 Wt: 140# (12/11/20) Meds noted: probiotics, zinc, vit C Labs noted: Na 132(L), Glu 123(H) Skin: PU to R heel and buttocks Estimated nutrition needs and nutrition diagnosis remain unchanged from initial nutrition assessment at this time. Patient is progressing towards meeting nutrition goals at this time. Recommendations/Interventions: -Recommend continue current and oral nutrition supplement for nutritionally aided wound healing. -Will continue to honor food preferneces within diet restrictions. -Will continue to monitor PO intake and wt trend. -RD will follow-up within 7 days.
--- NOTE | 2020-12-22 17:29 | NUR ---
RESTING QUIETLY IN BED WATCHING TV. DSG CHANGED TO COCCYX THIS MORNING. NO S/S INFECTION. STILL HAVING SOME DRAINAGE FROM WOUND. ENCOURAGED SEVERAL TIMES TODAY TO NOT STAY ON COCCYX BUT TO ROLL ON SIDES OFTEN TO RELIEVE PRESSURE. HE IGNORED ME AGAIN. CALL LIGHT IN REACH
--- NOTE | 2020-12-22 18:47 | NUR ---
RECEIVED PT LYING IN BED AWAKE. ALERT AND ORIENTED X4. DENIES ANY NEEDS OR PAIN. SONG CATH PATENT FREE FROM KINKS. CLEAR YELLOW URINE IN COLLECTION BAG. NO DISTRESS NOTED. LEFT FOREARM SL. DRESSING AND SWAB CAP INTACT. CALL LIGHT AND WATER WITHIN REACH. FALL PRECAUTIONS IN PLACE. CPOC
[2020-12-22 20:15] VITALS: BP 131/72
--- NOTE | 2020-12-23 02:48 | NUR ---
PT LYING IN BED ON LEFT SIDE EYES CLOSED RESTING. RR EVEN AND UNLABORED. CALL LIGHT AND WATER WITHIN REACH. FALL PRECAUTIONS IN PLACE. CPOC
[2020-12-23 07:41] LABS: BASOPHILS 0.3 % (0-2); EOSINOPHILS 4.9 % (0-7); IMMATURE GRANULOCYTES 0.1 % (0-5); LYMPHOCYTE ABS# 1.53 10x3/uL (1.32-3.57); LYMPHOCYTES 22.8 % (15-50); MCH 28.9 pg (26.0-34.0); MCHC 32.4 g/dL (31.0-37.0); MCV 89.5 fL (80.0-100.0); MONOCYTES 7.4 % (2-11); NEUTROPHIL ABS# 4.33 10x3/uL (1.78-5.38); NEUTROPHILS 64.5 % (40-80); RDW 15.4 % (11.5-14.5); WBC 6.7 10x3/uL (4.8-10.8)
[2020-12-23 07:49] VITALS: BP 100/57
[2020-12-23 07:49] LABS: CALC OSMOLALITY 266 mosm/kg (275-300); CALCIUM 8.5 mg/dL (8.5-10.1); CHLORIDE - SERUM 100 mmol/L (98-107); CREATININE - SERUM 0.5 mg/dL (0.6-1.3); GLUCOSE 96 mg/dL (74-106); POTASSIUM - SERUM 3.9 mmol/L (3.5-5.1); SODIUM 134 mmol/L (136-145); UREA NITROGEN 11 mg/dL (7-18); eGFR NON AFRICAN AMERICAN > 90 mL/min (90-120)
[2020-12-23 07:56] LABS: PLATELET COUNT 241 10x3/uL (130-400)
--- NOTE | 2020-12-23 08:00 | NUR ---
SHIFT ASSMT COMPLETED.DENIES NEEDS.
--- NOTE | 2020-12-23 12:00 | NUR ---
SITTING UP ON SIDE OF BED EATING LUNCH.
--- NOTE | 2020-12-23 13:27 | NUR ---
CARE TEAM MEETING: PATIENT IS DOING WELL IN THERAPY. HIS TENATIVE DC DATE IS 12/25/20 TO [facility]. WILL CONTINUE TO FOLLOW WITH PATIENT.
--- NOTE | 2020-12-23 19:39 | NUR ---
AWAKE AND ALERT. RESTING IN BED WITH RESPIRATIONS UNLABORED. SONG PATENT. SALINE LOCK INTACT TO LEFT FOREARM. NO DISTRESS NOTED.
[2020-12-23 20:35] VITALS: BP 132/66
--- NOTE | 2020-12-24 01:30 | NUR ---
RESTING IN BED WITH RESPIRATIONS UNLABORED. NO DISTRESS NOTED.
--- NOTE | 2020-12-24 05:24 | NUR ---
QUIET HOURS. NO ACUTE CHANGES IN CONDITION THIS SHIFT. NO DISTRESS NOTED.
[2020-12-24 08:00] VITALS: BP 133/83
--- NOTE | 2020-12-24 08:00 | NUR ---
SHIFT ASSMT COMPLETED.
--- NOTE | 2020-12-24 12:33 | RHP ---
PATIENT: ERICH TOUSSAINT MEDICAL RECORD: [id number] ACCOUNT: [id number] LOCATION:[id number] : 51 ADMISSION DATE: 12/10/20 REHABILITATION HISTORY AND PHYSICAL EXAMINATION POST ADMISSION PHYSICIAN EXAMINATION ADMITTING DIAGNOSIS: Left above-knee amputation. HISTORY OF PRESENT ILLNESS: The patient is a 65-year-old gentleman whose PCP is Dr. Elizabeth who presented to the ED complaining of shortness of breath. He was noted to be a poor historian. He was placed on BiPAP and had ABG done. He was noted to have COPD, emphysema, interstitial lung disease, chronic bronchitis, chronic cough. He is a tobacco user. The patient was noted to have ESBL in his urine. He was placed on isolation. He was also noted to have a pressure area to his right heel that appeared to be somewhat mushy. The patient had exploratory surgery to this area and he was left with an szvjk-vyi-fkft amputation approximately 1 month ago and has had wound care throughout his stay. After having the yvcfv-gej-ruwh amputation, he did have a 20-day stay in the SNF and has been back home with increased weakness and noted not to be getting up or out of bed. It was recommended maybe to put him in inpatient rehab and hopefully get him up and going again and possibly get back home. He lives at home with his roommates was completely independent with ADLs and mobility prior to this recent hospitalization. He has a sister that is his contact center engineer. He certainly set up for max assist with his ADLs, mod to max assist for mobility. Plan is to discharge home with home health hopefully. COMORBIDITIES: In this patient include ijddr-zs-[id number] hypoxic respiratory failure. He has got ESBL in his urine. He has got acute hepatitis, chronic cough, lung disease, chronic COPD, peripheral vascular disease, congestive heart failure, hypertension, ETOH dependence, peripheral vascular disease, debility. PAST MEDICAL HISTORY: Significant for peripheral vascular disease, neuropathy, hepatitis, coronary artery disease, COPD, chronic cough, pressure ulcers. PAST SURGICAL HISTORY: Includes a skin graft, eye surgery, stent placement, tsefr-nno-mbmr amputation. ALLERGIES: No known drug allergies. CURRENT MEDICATIONS: Include Singulair 10 mg at bedtime, melatonin 6 mg at bedtime, Floranex one cap daily, Tessalon Perles 100 mg t.i.d., he is on a Nicoderm patch 21 mg daily, guaifenesin 1200 mg b.i.d., Calmoseptine as needed, zinc sulfate 220 daily, vitamin D 1000 units daily, ascorbic acid 1000 mg daily, Vibramycin 100 mg b.i.d., multivitamin daily, Plavix 75 mg daily, Protonix 40 mg daily, Maxipime 2 grams every 8 hours, [place] 1 tab every 4 hours and Ventolin updrafts. HABITS: Does have history of alcohol and tobacco dependence. FAMILY HISTORY: Noncontributory. SOCIAL HISTORY: The patient hopes to return back home and get back to his prior level of functioning. REVIEW OF SYSTEMS: HISTORY AND PHYSICAL [id number] ERICH TOUSSAINT GENERAL: Does complain of weakness and fatigue. HEENT: Denies cold, cough or congestion. CARDIOVASCULAR: Denies any chest. PHYSICAL EXAMINATION: VITAL SIGNS: Stable, afebrile. GENERAL: A much older than stated age gentleman in no acute distress upon exam. HEENT: Normocephalic and atraumatic. Mucosa moist. NECK: Supple with no lymphadenopathy. LUNGS: Clear in upper yates. No wheezing or rales. HEART: Regular rate and rhythm. No murmurs, rubs or gallops. ABDOMEN: Soft, benign, and nondistended. Positive bowel sounds times 4. EXTREMITIES: He is noted to have an cvdpy-yci-gbmj amputation. NEUROLOGIC: He has got some diffuse weakness. LABORATORY DATA: Admit white count is 6.0, H&H of 11 and 35 and platelet count is 495. His sodium is 135, potassium 4.0, BUN and creatinine of 15 and 0.4 and blood sugar is noted to be 105. Admit UA was negative. ASSESSMENT: This is a 65-year-old gentleman admitted to the rehab with a working diagnosis of left urouz-hei-cogb amputation. The patient has potential to make improvement. We instituted the following multidisciplinary therapies including, not limited to physical, occupational, respiratory, speech, nutritional services, prosthetics and orthotics. Given his complex medical condition and risks for more complications, rehabilitation services cannot be provided at a low level of care such as [facility] facility. PLAN: 1. Admit to [facility] for inpatient therapy to include the following disciplines; A. Physical therapy to improve gait, all transfer skills and bed mobility to a modified independent level. B. Occupational therapy to improve activities of daily living. C. Case management to help with discharge planning and placement options. D. Nutrition to assist with nutritional needs. E. Rehabilitation nursing to assist monitoring the patient's underlying medical conditions and to assist with any type of bowel or bladder management. 2. The patient's current medication and medical care will be continued. 3. Placed on standard fall precautions. 4. The patient's estimated length of stay is approximately 7 to 10 days. 5. Discuss this patient during care team staff meeting this week. TRANSINT:[id number] Voice Confirmation ID: [id number] DOCUMENT ID: [id number] MIRNA notes whether there has been none or any medical/functional change since admission: - No change since preadmission screen. MIRNA attests patient continues to be appropriate for IRF: - Continues to be appropriate. HISTORY AND PHYSICAL [id number] ERICH TOUSSAINT,ANNE-MARIE GILL MD at 1233 CC: [id number] DICTATION DATE: 12/11/20 0849 BONDACTOR MACHINE OPERATOR: 12/11/20 1059 ADM IN [place] [id number] [place] [address]
--- NOTE | 2020-12-24 18:55 | NUR ---
AWAKE AND ALERT. RESTING IN BED WITH RESPIRATIONS UNLABORED. IV SITE TO LEFT FOREARM INTACT. SONG PATENT. CONTACT ISOLATION IN PLACE. CALL LIGHT IN REACH.
[2020-12-24 20:00] VITALS: BP 138/76
--- NOTE | 2020-12-25 01:40 | NUR ---
SLEEPING WITH RESPIRATIONS UNLABORED. NO DISTRESS NOTED.
--- NOTE | 2020-12-25 05:04 | NUR ---
QUIET HOURS. NO ACUTE CHANGES IN CONDITION THIS SHIFT. RESTING IN BED WITH NO DISTRESS NOTED. NOHEMI PATENT.
[2020-12-25 07:20] VITALS: BP 120/74
[2020-12-25 07:22] LABS: CALC OSMOLALITY 269 mosm/kg (275-300); CALCIUM 8.6 mg/dL (8.5-10.1); CHLORIDE - SERUM 100 mmol/L (98-107); CREATININE - SERUM 0.4 mg/dL (0.6-1.3); GLUCOSE 98 mg/dL (74-106); POTASSIUM - SERUM 4.2 mmol/L (3.5-5.1); SODIUM 136 mmol/L (136-145); eGFR NON AFRICAN AMERICAN > 90 mL/min (90-120)
[2020-12-25 07:27] LABS: UREA NITROGEN 8 mg/dL (7-18)
[2020-12-25 07:50] LABS: BASOPHILS 0.4 % (0-2); EOSINOPHILS 5.2 % (0-7); HEMATOCRIT 33.6 % (42.0-54.0); LYMPHOCYTE ABS# 1.34 10x3/uL (1.32-3.57); MCH 29.2 pg (26.0-34.0); MCHC 32.7 g/dL (31.0-37.0); MCV 89.1 fL (80.0-100.0); MEAN PLATELET VOLUME 9.4 fL (7.4-10.4); MONOCYTES 12.4 % (2-11); NEUTROPHIL ABS# 5.13 10x3/uL (1.78-5.38); PLATELET COUNT 203 10x3/uL (130-400); RBC 3.77 10x6/uL (4.20-6.10); RDW 15.4 % (11.5-14.5); WBC 7.9 10x3/uL (4.8-10.8)
--- NOTE | 2020-12-25 08:00 | NUR ---
LAYING DOWN IN BED RESTING QUIETLY WITH EYES CLOSED. IS SCHEDULED TO DC [facility] TODAY. CALL LIGHT IN REACH
[2020-12-25] MEDS ORDERED: HYDROCODON-ACE1 EAC7 PO (08:10)
[2020-12-25] MEDS ORDERED: SINGULAIR10 MG PO (08:10)
[2020-12-25] MEDS ORDERED: NEURONTIN 300300 MG PO (08:10)
[2020-12-25] MEDS ORDERED: PROTONIX40 MG PO (08:10)
[2020-12-25] MEDS ORDERED: MELATONIN 3 MG1 TAB PO (08:11)
[2020-12-25] MEDS ORDERED: VITAMIN C PO (08:11)
[2020-12-25] MEDS ORDERED: THERAGRAN M [BK1 TAB PO (08:11)
[2020-12-25] MEDS ORDERED: VITAMIN D325 MC1 PO (08:11)
--- NOTE | 2020-12-25 09:47 | NUR ---
PATIENT DISCHARGING TO [facility] TODAY VIA FACILITY VAN. DOROTHY SIGNED, IMM SERVED AND EXPLAINED, ONE GIVEN TO PATIENT AND ONE FILED IN CHART. 01/01/21 @ 9:45, DR. YOUNG 12/30/20 @ 9:00, DR. RAMOS/MERI 01/21/21 @ 3:30. NO COMPARE DATA REVIEWED PATIENT SISTER MADE ARRANGEMENTS FOR SNF PLACEMENT. DC INSTRUCTIONS FAXED TO SNF, PCP AND REVIEWED WITH PATIENT.
--- NOTE | 2020-12-25 10:30 | NUR ---
DC TO [facility]. REPORT CALLED TO NURSE PILI ROGERS. SENT PAIN SCRIPT WITH PAPER WORK. F/C PATENT. [facility] CAME ANG GOT PT.
== END 2020-12-25 10:30 | DRG 559 ==
LOC: D.REHAB 17:35
PROVIDERS: ADMIT Emergency Medicine; ATTEND Emergency Medicine
DX: Z47.81 Encounter for orthopedic aftercare following surgical amputation (principal); J96.21 Acute and chronic respiratory failure with hypoxia; J96.22 Acute and chronic respiratory failure with hypercapnia; B17.9 Acute viral hepatitis, unspecified; E87.1 Hypo-osmolality and hyponatremia; I50.22 Chronic systolic (congestive) heart failure; Z89.612 Acquired absence of left leg above knee; J44.9 Chronic obstructive pulmonary disease, unspecified; I73.9 Peripheral vascular disease, unspecified; I11.0 Hypertensive heart disease with heart failure; F10.20 Alcohol dependence, uncomplicated; R53.81 Other malaise; J47.9 Bronchiectasis, uncomplicated; J43.9 Emphysema, unspecified; D50.9 Iron deficiency anemia, unspecified